=== PATIENT | female | born 1965 | race Caucasian/White ===

== ENCOUNTER 2017-02-27 20:02 | Inpatient (IN) | payer OTHER ==
[~2017-02-27] VITALS: Ht 160 cm; Wt 67.7 kg
[2017-02-27] VITALS (9 sets, daily range): BP systolic 77–113; BP diastolic 42–74; PULSE 69–94; RESP 20–23; O2SAT 98–100
[~2017-02-27 20:02] MED LIST: ALBU0.423 NEB; ALBU8.5H4 IH; ALPR0.5T PO; Albuterol-Ipratropium 3 mL Inhalation Solution NEB ONE; MethylprednisoLONE Sodium Succinate 62.5 mg/mL 2 mL Inj IVPUSH ONE; OXYC-284 PO; PRE20 PO
[2017-02-27] MEDS ORDERED: Propofol Inj 1,000,000 MCG in IV Premix 1 EACH IV SCH ×2 (20:08→21:50)
[2017-02-27] MEDS ORDERED: Ipratropium 0.02% 0.5 mg/2.5 mL Inhalation Solution NEB ONE (20:10)
[2017-02-27] MEDS ORDERED: MethylprednisoLONE Sodium Succinate 62.5 mg/mL 2 mL Inj IVPUSH ONE (20:10)
[2017-02-27] MEDS ORDERED: Albuterol 2.5 mg/3 mL Inhalation Solution NEB ONE (20:10)
--- NOTE | 2017-02-27 20:10 | ED.REPORT ---
HPI-Cardiac Arrest Date of Service Feb 27, 2017 ED Provider: Yeison Waterman MD Patient is a 46 year old female with a history of asthma (prior admission/ intubation) who presents to the ED via EMS following cardiorespiratory arrest. Per EMS the patient had shortness of breath that progressively worsened, and a reporting person witnessed the patient go into cardiorespiratory arrest. The reporting person noted no pulses and started CPR which lasted 5 minutes at 1920. Upon arrival by EMS the patient was pulseless and apneic. Pt was intubated and given epinephrine and 2 rounds of ketamine. They performed 8 more minutes of CPR with return of circulation. En route the patient was hypotensive. Nursing Notes Stated Complaint: RESPIRATORY ARREST Chief Complaint: Critical Care/Intubated Nursing Notes Reviewed: Yes ([employer] not reconciled) Allergies: Coded Allergies: erythromycin base (Verified Allergy, Unknown, 12/06/14) hydrocodone (Verified Allergy, Unknown, 12/06/14) promethazine (Verified Allergy, Unknown, 12/06/14) Uncoded Allergies: Erythromycin (Allergy, Unknown, 07/18/04) Hydrocodone (Allergy, Unknown, 07/18/04) Penicillin (Allergy, Unknown, 07/18/04) Promethazine (Allergy, Unknown, 07/18/04) Scheduled Prednisone (PredniSONE) 20 Mg Tablet 60 MG PO DAILY Scheduled PRN Albuterol (Accuneb) 1.25 Mg/3 Ml Nebu 1.25 MG NEB Q4H PRN PRN For Wheezing Albuterol HFA (Albuterol HFA) 8.5 Gm Hfa.aer.ad 1 PUFF IH Q4 PRN PRN For Wheezing Alprazolam (Xanax) 0.5 Mg Tablet 0.5 MG PO TID PRN PRN For Anxiety Oxycodone HCl/Acetaminophen 5-325 (Percocet 5-325) 1 Each Tablet 1 EACH PO Q4 PRN PRN For Pain General Time Seen by Provider: 20:02 Chief Complaint Cardiac arrest, found dwn Down Time Prior to EMS: 1 - 20 min Total Time Arrest to Arrival: 1 - 20 min Hx Obtained From: EMS Unable to Obtain Hx: Patient condition Arrived By: Ambulance Onset Occurred: Just prior to arrival Context of Onset: Asthma/COPD exacerb Symptom Duration: Since onset Recent Healthcare: No recent hospitalization, Recent doctor visit Similar Sx Previous: Yes Past Medical History Past Medical History Notes: Previous admission for status asthmaticus November 2014 - records from that admission indicates she has had a previous intubation for asthma at [facility] Past Medical History Asthma (prior admission, intubation) Anxiety hypertension The patient's significant other mentions heart disease and describes a possible cardiac stent, but then talks about what certainly sounds like an asthma exacerbation, and it reports that the patient is not on any aspirin or other standard cardiac medications Additionally the patient's significant other reports patient has suffered a previous fractured sternum from prior CPR Past Surgical History Unknown ? History of cardiac angioplasty and/or stent-deals details unclear and from unreliable source Smoking History Never Smoker Social History Drug Use: Cocaine (history of cocaine use per ED i.e. report, with report of cocaine use in November 2016) Ambulatory Status Independent Review of Systems Unable to Obtain ROS Patient condition, Intubated Physical Exam Initial Vital Signs Vital Signs (First) Date Time Temp Pulse Resp B/P Pulse Ox O2 Delivery O2 Flow Rate FiO2 02/27/17 20:08 36.9 94 23 112/67 100 Mechanical Ventilator Initial VS: Reviewed, Vital signs abnormal (cardiac arrest in field) ENT: Conjunctiva normal, No scleral icterus Skin: Warm, Dry, No cyanosis Alertness: Positive: Unresponsive Intubated post cardiac arrest Patient was given ketamine prior to arrival to the ED making the exam difficult to perform Respiratory: audible bronchospasms bilaterally. reasonable bag valve compliance and peak pressure are under 40 (current vent does not allow plateau pressures) bounding pulses everywhere Cardiovascular: Heart rate NL, Regular rhythm, Heart sounds NL, No murmurs, Peripheral circulation NL Abdomen: Soft, Non-tender Head / Eyes: Atraumatic, Normocephalic, No nystagmus Mental Status: Positive: Pharmacologically sedated, Unresponsive 4mm pupils minimally reactive Interpretation & Diagnostics Lab Results Interpretation Result Diagram: 02/27/17200902/27/172009 Test 02/27/17 20:10 02/27/17 20:27 White Blood Count 12.5th/mm3 (3.8-10.1) Red Blood Count 3.92mil/mm3 (3.90-5.20) Hemoglobin 11.1g/dL (12.0-15.6) Hematocrit 36.3% (35.0-46.0) Mean Corpuscular Volume 92.6fL (81-100) Mean Corpuscular Hemoglobin 28.3pg (27.0-35.0) Mean Corpuscular Hemoglobin Concent 30.6% (32.0-37.0) Red Cell Distribution Width 14.9% (12.3-15.4) Platelet Count 315bil/L (150-400) Neutrophils (%) (Auto) 64.1% (40-74) Lymphocytes (%) (Auto) 18.1% (14-46) Monocytes (%) (Auto) 8.2% (4-12) Eosinophils (%) (Auto) 8.0% (0-5) Basophils (%) (Auto) 0.2% (0-3) Prothrombin Time 10.8sec (8.1-12.5) Prothromb Time International Ratio 1.01ratio D-Dimer 4.29mg/L FEU (<0.50) Sodium Level 143mEq/L (134-144) Potassium Level 4.0mEq/L (3.5-5.2) Chloride Level 106mEq/L (97-108) Carbon Dioxide Level 17mmol/L (18-29) Blood Urea Nitrogen 18mg/dL (6-24) Creatinine 1.19mg/dL (0.57-1.00) Estimat Glomerular Filtration Rate 69mL/min (>59) Glucose Level 155mg/dL (60-99) Lactic Acid Level 6.2mmol/L (0.4-2.0) Calcium Level 7.9mg/dL (8.5-10.1) Phosphorus Level 9.5mg/dL (2.5-4.9) Magnesium Level 2.5mg/dL (1.6-2.6) Total Bilirubin 0.4mg/dL (0.0-1.2) Aspartate Amino Transf (AST/SGOT) 48U/L (0-50) Alanine Aminotransferase (ALT/SGPT) 41U/L (0-32) Alkaline Phosphatase 59U/L (25-150) Total Creatine Kinase 198U/L (21-215) Creatine Kinase MB 7.1ng/mL (0.0-5.3) Creatine Kinase MB % 3.6% (0.0-5.0) Troponin T < 0.010ug/L (0.0-0.011) Pro-B-Type Natriuretic Peptide 214.7pg/mL (0-249) Total Protein 5.6g/dL (6.4-8.4) Albumin 3.2g/dL (3.4-5.0) Triglycerides Level 46mg/dL (0-149) HCG Beta Subunit 0.784mIU/mL Urine Color Yellow (YELLOW) Urine Appearance Hazy (CLEAR,HAZY) Urine pH 6.0 (5.0-8.0) Urine Specific [place] >1.030 (1.003-1.035) Urine Protein >300mg/dL (NEG,TRACE) Urine Glucose (UA) Negativemg/dL (NEGATIVE) Urine Ketones Negativemg/dL (NEGATIVE) Urine Occult Blood Large (NEGATIVE) Urine Nitrite Negative (NEGATIVE) Urine Bilirubin Negative (NEGATIVE) Urine Urobilinogen Normalmg/dL (NORMAL) Urine Leukocyte Esterase Negative (NEGATIVE) Urine RBC >50/hpf (0-2) Urine WBC 0-5/hpf (0-5) Urine Epithelial Cells Moderate/hpf (NONE-MOD) Urine Crystals None seen (NONE SEEN) Urine Bacteria Few/hpf (NONE-FEW) Urine Hyaline Casts None/lpf (NONE) Urine Granular Casts None seen (NONE SEEN) Urine Waxy Casts None seen (NONE SEEN) Urine Red Blood Cell Casts None seen (NONE SEEN) Urine White Blood Cell Casts None seen (NONE SEEN) Urine Mucus None seen (None Seen) Urine Trichomonas None seen (NONE SEEN) Urine Yeast None (NONE SEEN) Urinalysis Comment Amorphous sediment Urine Culture Reflexed Not indicated Lab Results Interpretation: pH 7.046/ pCO2 72/ pO2 308.0/ cHCO3- (P) 18.9 CBC moderate leukocytosis CMP severe metabolic acidosis, mild renal insufficiency negative D-dimer elevated UA concentrated, positive blood Tox screen Initial troponin negative ECG Interpretation ECG Interpretation: no ischemia no dysrhythmia Time: 20:19 Interpreted by: ED physician Normal ECG Interpretation: Normal rate (93), Normal sinus rhythm X-Ray Chest Interpretation Chest Xray Interpretation: IMPRESSION: Acute disease is not seen in any portable chest. Tubes as noted. Dictated by: Dany Nunez M.D. on 02/27/2017 at 20:24 Approved by: Dany Nunez M.D. on 02/27/2017 at 20:26 View: Portable, 1 view Interpretation / Wet Read by: Interpret - Radiologist CT Head Interpretation Findings: No hemorrhage, abnormal extra-axial fluid collections, midline shift or mass effect present. The sella and supra-sellar areas are normal. The brainstem and cerebellum are normal. No CT evidence of acute infarct. No fractures. Paranasal sinuses are normal. The orbits are normal. at 2225. Study: Head CT no contrast Interpretation / Wet Read by: Interpret - Radiologist Procedures Central Line Placement Central Line Placement Note: Single needlestick pass success. Placement of triple lumen right subclavian Time: 20:41 Procedure Performed by: ED physician Consent / Setup / Site Prep: No consent - emergent, Time-out performed, Oxygen administered, Pulse oximeter applied, groundwater monitoring technician applied, Hand hygiene observed, Standard surgical scrub, Max barrier precaution, Sterile drapes applied, Head of bed at 30-60 deg (at 30) Skin Preparation Agent: Hibiclens - Chlorhexidine Local Anesthesia: Lidocaine 1% Procedural Sedation/Analgesia: Sedation: Ketamine Side / Location / Ultrasound: Subclavian right Catheter / Lumen / Technique: Triple lumen, Good blood return, Secured w catheter device Central Line Tip Location: Cath tip good position in the SVC Post-Procedure / Complications: Dressing placed, CXR neg for pneumothorax, Condition improved, Tolerated procedure well Re-Eval/Medical Decision Med Decision/Clinical Course This is a 46-year-old female brought to the emergency department following a cardiac arrest thought to be secondary to a primary respiratory arrest. The patient is a history of severe asthma, has been hospitalized and even intubated in the past, apparently was having worsening shortness of breath, then significant other called 911, and the patient requested just as EMS was arriving. The bystander performed a few minutes of CPR, and it took another approximately 8 minutes of CPR and resuscitative efforts for before return of spontaneous circulation occurred. Initial end-tidal CO2 was greater than 120, patient's clinically bronchospastic throughout, but had return of blood pressure and oxygenation on arrival. She had no clear definitive neurologic function, but given her severe bronchospasm and would seem be some reaction to the endotracheal tube, the patient received ketamine by EMS prior to arrival. On arrival patient's intubated, so bronchospastic. Peak pressures are only 30, she does have air movement bilaterally. No pneumothorax or pneumonia is evident on chest x-ray. An NG tube was placed. The patient was placed on low volume vent settings given his concern for the possibility of air trapping. She was monitored but had no clear return of neurologic function, so the decision was made to proceed with sedation and hypothermia protocol. Probable false initially planned, but just as this happened, the patient did become hypotensive; probable fall was never administered. At this point ketamine was given for re-sedation. I placed a right subclavian central line without difficulty, follow-up chest x- ray demonstrating outlining good position with no complication. Anesthesia place arterial line. She received multiple liters of saline, but still remained hypotensive and was started nor epi drip. The patient improved. There is concern for possibly some mucous plug events, patient twice had 2 major desaturations-the patient was disconnected from the vent, bag valve ventilated-there are breath sounds bilaterally, with good compliance without evidence of air trapping or pneumothorax. The patient was suctioned a large amount of material removed, the patient oxygenated again. The patient is reattached to the ventilator, and post the suctioning, the pressures went down from what it been a peak of 30, down to 10-20 or markedly improved. There was no significant bronchospasm. The patient had several radiographs try to make sure that the tube placement had not changed significantly, and no pneumothorax or barotrauma had occurred- no point was the tube identified in the right mainstem, but nurses report that the initial hypoxic desaturation event occurred as a moving around, so I pulled back the ET tube slightly in re-shocked it still in excellent position to help make sure that the movement had not led to a transient right mainstem obstruction. She received albuterol, Atrovent, steroids, IV fluids-and 1. even 0.5 mg of intramuscular epinephrine. She remains broncho-Spastic, but is improving. Blood pressure is normalizing. EKG reveals no ischemia. Troponin is negative. There is this difficult to interpret history of possible heart disease related by by the significant other , but his description is a bit unusual or true coronary artery disease, the patient is adamant is not on aspirin or any cardiac meds. Any events that he describes sound like he occurred following up another respiratory arrest, but he does describe and mentions "Staff Home Therapy Rn" and "stent". Apparently she was she was just hospitalized recently at [facility] and were attempting to obtain records. The [facility] records indicate she was cocaine positive in December at [facility], so U tox was obtained and is cocaine positive today. A CT of the brain was obtained and was negative. CT angios the chest also obtained. Patient is being admitted in critical condition. She was responded to therapy with fluids and pressors, so we are proceeding with the hypothermia protocol. Interestingly her temp was low and near the target range for hyperthermia even prior to initiation of any cooling. Note-after prolonged period referred back from [facility] that they have not been able to identify records for this patient. Source of Hx: Old records, EMS Re-Evaluation/Progress #1: Time of Eval: 20:35 Re-Evaluation/Progress Note: Rechecked patient. She still has no leg movement. Re-Evaluation/Progress #2: Time of Eval: 20:39 Re-Evaluation/Progress Note: Still has bronchospasms. Symmetric breath sounds bilaterally Re-Evaluation/Progress #3: Time of Eval: 21:32 Re-Evaluation/Progress Note: Desatted, switched to bag valve ventilation. Audible bronchospasms, bilateral breath sounds no overt evidence of pneumothorax. after bag valve ventilation, O2 levels went up 100% Re-Evaluation/Progress #4: Time of Eval: 21:40 Re-Evaluation/Progress Note: Patient Desatted again. Updated significant other of condition. Consultation #1: Referral / Consult Name: Risa Culver DO Consulted With: Hospitalist Call Returned at: 21:06 Vice President Of Marketing: Agrees with eval, Agrees with plan, Accepts admit Consultation #2: Referral / Consult Name: Risa Culver DO Consulted With: Hospitalist Call Returned at: 23:21 Note: Discussed patient's case with Dr. Culver and further past medical history and tox results of the patient. Differential Diagnosis: Positive: Cardiopulmonary arrest, Respiratory arrest, Respiratory failure, Negative: Abdominal aortic aneurysm, Allergic reaction, Anaphylaxis, Cardiac tamponade, Dysrhythmia, Electrolyte disorder, Hypoglycemia, Intracranial hemorrhage, Overdose, Pneumothorax Counseled Regarding: Diagnosis, Lab results, Need for admission Discharge & Departure Impression: Primary Impression: Respiratory arrest Additional Impressions: Status asthmaticus Asthma severity: unspecified severity Qualified Code: J45.902 - Unspecified asthma with status asthmaticus Cocaine abuse Disposition: ADMITTED TO HOSPITAL All VS Reviewed: Yes Condition: Critical Referrals: [facility] Crit Care Except Billable Proc Time Spent: 30-74 minutes Services Performed: Patient management by me, Time spent at bedside, Reviewing test results, Reviewing imaging, Discussing patient care, Documentation in record, Time with fam/surrogate Scribe Attestation Portions of this note were transcribed by Janie Lin and Silvia Henderson. I, Dr. Trujillo personally performed the history, physical exam and medical decision- making; I reviewed and confirmed the accuracy of the information in the transcribed note. Signed by: Janie Lin and Lorne Ibarra, 02/27/17 and 2120 copies to: [facility] Yeison Waterman MD Feb 27, 2017 20:10 Marsha Lin Feb 27, 2017 20:17 Silvia Henderson Feb 27, 2017 21:07
--- NOTE | 2017-02-27 20:15 | ABG ---
DateTimeAnalyzed 20:11:00 -_ pH ____7.046 - 7.350 7.450 pCO2 ___72.2__ -mmHg 35.0 45.0 pO2 308 -mmHg 69.0 116 HCO3- ___18.9__ -mmol/L 22.0 26.0 ABE __-12.2__ -mmol/L -2.0 2.0 tHb ___10.9__ -g/dL O2Hb ___96.7__ -% COHb ____1.0__ -% MetHb ____1.1__ -% sO2 ___98.8__ -% FIO2 __100.0__ -% Drawn By LT - Date/Time Notified____ 20:14:00 -_ Notified By LT - Notified Whom DR MARCO - B 765 -mmHg tO2 ___15.5__ -Vol% [place] test _Positive -
[2017-02-27 20:19] LABS: BASOPHILS % (AUTO) 0.2 % (0-3); MONOCYTES % (AUTO) 8.2 % (4-12); Mean Corpuscular Hemoglobin 28.3 pg (27.0-35.0); Mean Corpuscular Volume 92.6 fL (81-100); NEUTROPHILS % (AUTO) 64.1 % (40-74); Platelet Count 315 bil/L (150-400)
[2017-02-27] MEDS ORDERED: 0.9% Sodium Chloride 1,000 ML IV ONE ×3 (20:20→21:15)
[2017-02-27] MEDS ORDERED: Magnesium Sulf 2 Gm/50mL Water 2 GM in IV Premix 1 EACH IV ONE (20:20)
[2017-02-27] MEDS ORDERED: Propofol 10,000 mCg/mL 100 mL Inj ONE (20:23)
--- NOTE | 2017-02-27 20:27 | DRSVH ---
PROCEDURE: X-RAY CHEST ONE VIEW, PORTABLE ([id number]) INDICATIONS: respiratory arrest TECHNIQUE: One view of the chest was acquired. COMPARISON: None. FINDINGS: Surgical changes and devices: NG tube shows a sidehole in the distal esophagus and needs to be advanc ed [address] Schofield is aware of this. Endotracheal tube is 4.5 cm above the karina. Lungs and pleura: No pleural effusions or pneumothorax. Lungs are clear. Mediastinum: Mediastinal contours appear normal. Heart size is normal. Bones and chest wall: No suspicious bony lesions. Overlying soft tissues appear unremarkable. IMPRESSION: Acute disease is not seen in any portable chest. Tubes as noted. Dictated by: Dany Nunez M.D. on 02/27/2017 at 20:24 Approved by: Dany Nunez M.D. on 02/27/2017 at 20:26
[2017-02-27] MEDS ORDERED: Ketamine 100 mg/mL 5 mL Inj ONE (20:35)
[2017-02-27] MEDS ORDERED: Norepineph 8,000 mCg/250 mL NS 8,000 MCG in IV Premix 1 EACH IV SCH ×2 (20:36→21:11)
[2017-02-27] MEDS ORDERED: Ketamine 100 mg/mL 5 mL Inj IV ONE (20:40)
[2017-02-27 20:50] LABS: TROPONIN T < 0.010 ug/L (0.0-0.011)
[2017-02-27 20:59] LABS: Magnesium 2.5 mg/dL (1.6-2.6)
[2017-02-27 21:01] LABS: APPEARANCE,URINE HAZY (CLEAR,HAZY); COLOR,URINE YELLOW (YELLOW); OCCULT BLOOD,URINE LARGE (NEGATIVE); UROBILINOGEN,URINE NORMAL (NORMAL)
[2017-02-27] MEDS ORDERED: Norepinephrine 8,000 mCg/250 mL NS Premix IV ONE (21:01)
--- NOTE | 2017-02-27 21:27 | DRSVH ---
PROCEDURE: X-RAY CHEST ONE VIEW, PORTABLE ([id number]) INDICATIONS: check central line placement TECHNIQUE: One view of the chest was acquired. COMPARISON: None. FINDINGS: Surgical changes and devices: Central line from the right subclavian approach has been placed. It is considered in good position radiographically allowing for rotation of the chest. It is in the superio r vena cava above the right atrium. NG tube shows a side hole at the GE junction. awake overnight monitor gadiel ds are seen over the chest. The endotracheal tube ends 5 cm above the karina. Lungs and pleura: No pleural effusions or pneumothorax. Lungs are clear. Mediastinum: Mediastinal contours appear normal. Heart size is normal. Bones and chest wall: No suspicious bony lesions. Overlying soft tissues appear unremarkable. IMPRESSION: Right subclavian central line is considered to be in good position allowing for rotation of the chest. No pneumothorax is seen. Dictated by: Dany Nnuez M.D. on 02/27/2017 at 21:25 Approved by: Dany Nunez M.D. on 02/27/2017 at 21:26
--- NOTE | 2017-02-27 21:43 | ABG ---
DateTimeAnalyzed 21:38:00 -_ pH ____7.089 - 7.350 7.450 pCO2 ___64.0__ -mmHg 35.0 45.0 pO2 290 -mmHg 69.0 116 HCO3- ___18.5__ -mmol/L 22.0 26.0 ABE __-11.6__ -mmol/L -2.0 2.0 tHb ___11.2__ -g/dL O2Hb ___97.2__ -% COHb ____0.8__ -% MetHb ____1.2__ -% sO2 ___99.2__ -% FIO2 __100.0__ -% Drawn By LT - Date/Time Notified____ 21:42:00 -_ Notified By LT - Notified Whom DR MARCO - B 766 -mmHg tO2 ___15.9__ -Vol% [place] test N/A -
[2017-02-27] MEDS ORDERED: Cisatracurium 2,000 mCg/mL 10 mL Inj IV ONE ×2 (21:50→21:52)
[2017-02-27] MEDS: Cisatracurium 200,000 mCg/100 mL NS IV SCH ×2 (21:50)
--- NOTE | 2017-02-27 22:00 | DRSVH ---
PROCEDURE: X-RAY CHEST ONE VIEW, PORTABLE ([id number]) INDICATIONS: Desaturation Event TECHNIQUE: One view of the chest was acquired. COMPARISON: None. FINDINGS: Surgical changes and devices: NG tube is positioned with the side hole at the GE junction. Endotrache al tube has moved more distally and is now positioned approximately 2-1/2 cm above the karina. A righ t subclavian central line is appropriate in position. Lungs and pleura: No pleural effusions or pneumothorax. Lungs are clear. Mediastinum: Mediastinal contours appear normal. Heart size is normal. Bones and chest wall: No suspicious bony lesions. Overlying soft tissues appear unremarkable. IMPRESSION: Changed position of endotracheal tube now 2 and half centimeters above the karina. The NG tube could be advanced 10 cm so that the side hole is well within the stomach rather than at the G E junction. Right subclavian central line with the tip at the junction of superior vena cava and right atrium. Dictated by: Dany Nunez M.D. on 02/27/2017 at 21:57 Approved by: Dany Nunez M.D. on 02/27/2017 at 21:59
[2017-02-27] MEDS ORDERED: Senna-Docusate 8.6-50 mg Tablet PO PRN (22:10)
[2017-02-27] MEDS ORDERED: Ondansetron 2 mg/mL 2 mL Inj IVPUSH PRN (22:10)
[2017-02-27] MEDS ORDERED: Polyethylene Glycol (PEG) 17 Gm Powder PO PRN (22:10)
[2017-02-27] MEDS ORDERED: Alum-Mag Hydrox-Simeth 30 mL Suspension PO PRN (22:10)
--- NOTE | 2017-02-27 22:29 | PCM.HPMED ---
Subjective Date of Service Feb 27, 2017 Primary Provider: Admitting Physician: Risa Culver DO Primary Care Physician: Justus Attending Physician: Risa Culver DO Admit Status: From the Emergency Department Chief Complaint: cardiac arrest History of Present Illness: 46yoF with past medical history of anxiety, asthma wit past intubations 2/2 asthma at [facility] as per EMR admitted following a cardiorespiratory arrest in the field. Per ED documentation: "Per EMS the patient had shortness of breath that progressively worsened, and a reporting person witnessed the patient go into cardiorespiratory arrest. The reporting person noted no pulses and started CPR which lasted 5 minutes at 1920. Upon arrival by EMS the patient was pulseless and apneic. Pt was intubated and given epinephrine and 2 rounds of ketamine. They performed 8 more minutes of CPR with return of circulation. En route the patient was hypotensive." Recent admission at [facility] and [facility]. Possible seizure activity following presentation. Utox in ED positive for cocaine. Initial vitals upon arrival T 36.9, 94, 23, 112/67 with BP decreasing 30 minutes following arrival (77/42). ABG following arrival pH 7.046/ pCO2 72/ pO2 308.0/ cHCO3- (P) 18.9 Patient was started on cooling protocol. Review of Systems: Unable to obtain. Patient is intubated and sedated. Allergies Coded Allergies: erythromycin base (Verified Allergy, Unknown, 12/06/14) hydrocodone (Verified Allergy, Unknown, 12/06/14) promethazine (Verified Allergy, Unknown, 12/06/14) Uncoded Allergies: Erythromycin (Allergy, Unknown, 07/18/04) Hydrocodone (Allergy, Unknown, 07/18/04) Penicillin (Allergy, Unknown, 07/18/04) Promethazine (Allergy, Unknown, 07/18/04) Home Medications Unable to obtain from patient. As per last admission 2014 only medications were albuterol and alprazolam PMH Asthma (prior admission, intubation) Anxiety hypertension possible cardiac history - not taking any cardiac medications, SO states patient has had cath and has stents in past? Surgical History Unknown surgical history Family History Unable to obtain family history as patient is intubated and sedated Social History Hx Alcohol Use: No Hx Substance Use: Yes (past history of cocaine use) Smoking Status: Never Smoker Exam Vital Signs Vital Sign - Last Date Time Temp Pulse Resp B/P Pulse Ox O2 Delivery O2 Flow Rate FiO2 02/27/17 21:55 74 23 113/74 98 Mechanical Ventilator 02/27/17 21:16 33.5 Exam General: sedated and intubated Eyes: PERRL, Scleral Anicteric Mouth: Mouth Normal, Mucous Membranes dry/[place] Neck: Supple, no Thyromegaly, trachea central. Chest & Lungs: CTA bilat, no rhonchi wheeze or rales Cardiovascular: Normal S1, Normal S2, 2/6 systolic Murmurs/Rubs/Gallops, reg rate/ reg rhythm, (unable to assess JVD, no peripheral edema), right ij in place Pulses: Radial (present and equal), Dorsalis Pedi (present and equal) Abdomen: Soft, non-tender, no rebound tenderness, Non-distended, Normoactive bowel tones. : villegas in place Musculoskeletal: Unremarkable. Normal range of motion, no swollen or erythematous joints Extremities: No edema, no cyanosis, no clubbing. Skin: No rashes. cooling and dry, no erythematous areas Neurological: unable to assess Lymphatic: Lymph nodes Cervical and Axillary not palpable. Lab and Diagnostics Result Diagram: 02/27/17200902/27/172009 X-Rays, CTs and MRIs CT Head Interpretation Findings: No hemorrhage, abnormal extra-axial fluid collections, midline shift or mass effect present. The sella and supra-sellar areas are normal. The brainstem and cerebellum are normal. No CT evidence of acute infarct. No fractures. Paranasal sinuses are normal. The orbits are normal. at 1342. Study: Head CT no contrast Interpretation / Wet Read by: Interpret - Radiologist X-Ray Chest Interpretation Chest Xray Interpretation: IMPRESSION: Acute disease is not seen in any portable chest. Tubes as noted. Dictated by: Dany Nuenz M.D. on 02/27/2017 at 20:24 Approved by: Dany Nunez M.D. on 02/27/2017 at 20:26 View: Portable, 1 view Interpretation / Wet Read by: Interpret - Radiologist 12-lead ECG ECG Interpretation: no ischemia no dysrhythmia Time: 20:19 Interpreted by: ED physician Normal ECG Interpretation: Normal rate (93), Normal sinus rhythm Assessment & Plan 46yoF with past medical history of anxiety, asthma wit past intubations 2/2 asthma at [facility] as per EMR admitted following a cardiorespiratory arrest in the field. Cardiopulmonary arrest, acute, prior to arrival -approx 5 minutes of CPR with ROSC -cooling protocol started prior to admission -unclear events leading up to arrest but likely associated with asthma -possible recent URI symptoms with recent admissions at [place] and [facility], request records -CTA pending -Utox +cocaine -initial troponin neg, no ischemic change on EKG -continue cooling protocol -repeat troponin -resp viral panel, MRSA screen, sputum cx, cefepime emprically Respiratory failure with hypoxia, acute -vent dependent -pulmonology consult vent management -vent bundle ordered -sedation with propofol / fentanyl Asthma exacerbation, acute -methylpred [id number] -albuterol q4hr Possible seizure activity, acute, POA -no known past seizure history -keppra 2000mg x1 Pain Evaluation: Adequate Pain Control GI Prophylaxis: H2 julia VTE Prophylaxis: Sub-Q Heparin (Unfractionated) VTE Mechanical Devices: Intermittant Pneumatic CD Resuscitation Status: CPR: Attempt Resuscitation Risa Culver DO Feb 27, 2017 22:29
[2017-02-27 23:02] LABS: INR 1.01 ratio
[2017-02-27] MEDS ORDERED: Cefepime Inj 2 GM in IV Premix 1 EACH IV SCH (23:02)
[2017-02-27 23:30] LABS: Phosphorus 9.5 mg/dL (2.5-4.9)
[2017-02-27] MEDS: Propofol Inj 1,000,000 MCG in IV Premix 1 EACH IV SCH (23:51)
[2017-02-27] MEDS: Cefepime Inj 2,000 MG in Dextrose 5% Minibag Plus 50 ML IV SCH (23:52)
[2017-02-28] VITALS (11 sets, daily range): BP systolic 106–152; BP diastolic 61–88; PULSE 48–65; RESP 22–24; O2SAT 92–100
[2017-02-28] MEDS: levETIRAcetam Inj 1,000 MG in IV Premix 1 EACH IV SCH ×2 (00:03→00:18)
[2017-02-28] MEDS: Chlorhexidine 0.12% 15 mL Oral Solution MT SCH ×5 (00:10→16:23)
[2017-02-28] MEDS ORDERED: NITROGLYCERIN 50 MG/250 ML IV PRN (00:10)
[2017-02-28] MEDS ORDERED: fentaNYL-PF 50 mCg/mL 2 mL Inj IV PRN (00:10)
[2017-02-28] MEDS ORDERED: D5W IV PRN (00:10)
[2017-02-28] MEDS ORDERED: Norepinephrine 8,000 mCg/250 mL NS Premix IV PRN (00:10)
[2017-02-28] MEDS ORDERED: Cisatracurium 2,000 mCg/mL 10 mL Inj IV PRN (00:15)
[2017-02-28] MEDS ORDERED: Magnesium Sulf 2 Gm/50mL Water 2 GM in IV Premix 1 EACH IV PRN (00:15)
[2017-02-28] MEDS ORDERED: Calcium GLUCO 10% (Gm) Inj 2 GM in 0.9% Sodium Chloride 100 ML IV PRN (00:20)
[2017-02-28] MEDS: fentaNYL 2,500 mCg/250 mL 2,500 MCG in IV Premix 1 EACH IV PRN (01:10)
[2017-02-28] MEDS: Cisatracurium 200,000 mCg/100 mL NS IV SCH ×4 (02:02→21:29)
--- NOTE | 2017-02-28 02:49 | NUR ---
Admit note. Admitted to CCU 2017 from ER at 2225. Assisted with setup and start of targeted temperature management at 2120. Continues ventilated with sats high 90s on 60% fio2. Levophed gtt 0.3mcg. Propofol 20mcg. 2200: Blood pressure abruptly increased as high as 190s/100s. Levophed gtt turned off, Propofol titrated up to 50mcg and eventually Nitroglycerin gtt started for MAP >100 per protocol. See CCU flowsheet. 0200: Started increasing peak pressures on ventilator with prolonged forceful expiration. Fentanyl gtt started without improvement. Respirations started significantly asyncronous with decrease in sats from 100% to 89-93%. Nimbex gtt started improved ventilations. BIS monitoring started with initially poor signal related to elevated EMG settling to a BIS of 5-10 after Nimbex. Propofol weaned. Chadwick cath in place with pale uop. OGT to LIS and minimal output. SCDs in place. Right radial arterial line in place. Right subclavian CVL in place and infusing well. Tele sinus rhythm. Significant other briefly to bedside and updated.
--- NOTE | 2017-02-28 02:58 | PROCED ---
[address] [address] PROCEDURE NOTE PATIENT: DL TOBIN : 09/08/1970 MR#: [id number] ADMIT: 02/27/2017 JOB ID: [id number] DATE OF SERVICE: POSTOPERATIVE DIAGNOSIS(ES): PREOPERATIVE DIAGNOSIS(ES): SURGEON: ANESTHESIA EPIDURAL PROCEDURE NOTE: I was called by the emergency department for an emergency arterial line placement secondary to the need to begin the hypothermic protocol for a cardiac arrest and the need for vasopressors. No consent was obtained as there was no family present and this was an emergency situation. A time-out was completed, verifying the correct patient, procedure, site, positioning, and the ultrasound was available. Rancho's test was performed on bilateral wrists to ensure adequate perfusion. Initially, the patient's left wrist was prepped and draped in the sterile fashion, but after several attempts I was not able to obtain arterial line placement. The patient's right wrist was prepped and draped in a sterile fashion. ChloraPrep was used on the skin. Sterile gloves, hat and gown were worn at all times. An 18-gauge Arrow arterial line was introduced into the right radial artery under ultrasound guidance. The catheter was threaded over the guidewire and the needle was removed with appropriate pulsatile blood return. The catheter was then secured in place with Tegaderm sterile dressing. Perfusion to the extremity distal to the point of catheter insertion was checked and found to be adequate. Appropriate pulsatile blood flow was present. Estimated blood loss 3 mL. No apparent anesthesia complications. [facility]OSPITALAlexys
--- NOTE | 2017-02-28 03:05 | NUR ---
Emergency room nursing lab result positive for Cocaine.
[2017-02-28 03:35] LABS: Mean Corpuscular Hemoglobin 28.9 pg (27.0-35.0); Mean Corpuscular Volume 91.2 fL (81-100)
[2017-02-28] MEDS: Propofol Inj 1,000,000 MCG in IV Premix 1 EACH IV SCH ×3 (03:37→22:25)
[2017-02-28 03:53] LABS: INR 0.98 ratio
--- NOTE | 2017-02-28 03:53 | ABG ---
DateTimeAnalyzed 03:49:00 -_ pH ____7.271 - 7.350 7.450 pCO2 ___43.9__ -mmHg 35.0 45.0 pO2 154 -mmHg 69.0 116 HCO3- ___19.5__ -mmol/L 22.0 26.0 ABE ___-6.6__ -mmol/L -2.0 2.0 tHb ___12.1__ -g/dL O2Hb ___97.4__ -% COHb ____0.7__ -% MetHb ____0.9__ -% sO2 ___99.0__ -% FIO2 ___45.0__ -% PEEP ____5.0__ -cmH2O Set_RR ___22.0__ -b/min Vt __380.0__ -L Drawn By MK - Date/Time Notified____ 03:52:00 -_ Spontaneous_RR ___22.0__ -b/min Oxygen Device 1 VENTILATOR - Notified By MK - B 767 -mmHg tO2 ___16.8__ -Vol% Rancho test N/A -
[2017-02-28 04:24] LABS: Magnesium 2.4 mg/dL (1.6-2.6)
[2017-02-28 04:25] LABS: TROPONIN T 0.01 ug/L (0.0-0.011)
[2017-02-28] MEDS ORDERED: KCl 40 mEq/100 mL Premix (K 3 - 3.7 & Creat < 2) IV ONE ×2 (05:10→16:30)
[2017-02-28] MEDS: MethylprednisoLONE Sodium Succinate 62.5 mg/mL 2 mL Inj IVPUSH SCH ×2 (08:12→14:25)
[2017-02-28 08:13] LABS: Phosphorus 3.3 mg/dL (2.5-4.9)
[2017-02-28] MEDS: Cefepime Inj 2,000 MG in Dextrose 5% Minibag Plus 50 ML IV SCH (08:13)
[2017-02-28] MEDS ORDERED: Albuterol HFA 200 Puff Inhaler (Vent Pts Only) INHALATION SCH (08:30)
--- NOTE | 2017-02-28 08:43 | DRSVH ---
PROCEDURE: CT BRAIN WITHOUT CONTRAST ([id number]) INDICATIONS: cardiac arrest TECHNIQUE: Noncontrast 4.5 mm thick angled axial sections acquired from the foramen magnum to the vertex, with c oronal reformats. COMPARISON: None. FINDINGS: Image quality: Excellent. CSF spaces: Basal cisterns are patent. No extra-axial fluid collections. Ventricles are normal in size and shape. Brain: No midline shift. No intracranial masses or hemorrhage. Miranda-white matter interface is norm al. Skull and face: Calvarium and visualized facial bones are intact, without suspicious lesions. Sinuses: Visualized sinuses and mastoids are clear. IMPRESSION: No acute intracranial abnormalities. No significant discrepancy with the dag coater radiology preliminary report. Dictated by: Devin Gan M.D. on 02/28/2017 at 8:39 Approved by: Devin Gan M.D. on 02/28/2017 at 8:41
--- NOTE | 2017-02-28 08:53 | DRSVH ---
PROCEDURE: CT ANGIO CHEST PULMONARY EMBOLISM ([id number]) INDICATIONS: Resp Arrest, Dimer 4.9 TECHNIQUE: After the administration of intravenous contrast, 2 mm thick sections acquired from the pulmonary api davie to the posterior costophrenic angles. 3-dimensional maximum intensity projection (MIP) coronal a nd sagittal reformats were then acquired through the thorax. For radiation dose reduction, the follo wing was used: automated exposure control, adjustment of mA and/or kV according to patient size. COMPARISON: [facility], CR, XR CHEST 1VW (PORTABLE), 02/27/2017, 21:27. [facility], CR, CHEST 2VW, 12/05/2014, 8:35. FINDINGS: Image quality: Excellent. Pulmonary arteries: Pulmonary arteries are normal in size, and demonstrate no intraluminal filling d efects to suggest central pulmonary embolism. Lungs and pleura: The basilar subpleural dependent atelectasis. The there is a 8 mm groundglass nodu le in the right infrahilar region within the lower lobe (series 5 image 36). A 3 mm nodule is present in the left upper lobe (series 5 image 22), and a 2 mm nodule in the lateral aspect of lingula (seri es 5 image 32). No pleural effusions or pneumothorax. Central and peripheral airways are patent. Mediastinum: Heart size is normal, without pericardial effusion. No mediastinal or hilar adenopathy . Thoracic aorta is normal in caliber and enhancement. Esophagus is normal in caliber, without hiat al hernia. Note is made of endotracheal tube and nasogastric tube. Bones and chest wall: No suspicious bony lesions. Ribs and thoracic spine appear intact throughout. Thyroid gland is normal. No axillary or supraclavicular adenopathy. Abdomen: Visualized upper abdominal solid organs appear normal in the early arterial phase of enhanc ement. IMPRESSION: 1. No evidence for central pulmonary embolism. 2. There are several lung nodules bilaterally. Recommend CT followup. Please see recommendation. Fleischner Society criteria for SOLID lung nodule followup. Nodule size (mm)Low-risk patientHigh-risk [id number] follow-up neededFollow-up at 12 mo; if no laws e, no further follow-up>5-1Ylvflp-tk CT at 12 mo; if no change, no further follow-up needed.Initial f ollow-up CT at 6-12 mo, then 18-24 mo if no change. >6-8Initial follow-up CT at 6-12 mo, then 18-24 mo if no change. Initial follow-up CT at 3-6 mo, then 9-12 mo and 24 mo if no change. >8Follow-up CT at 3, 9, 24 mo. Or PET and/or biopsy.Same as for low-risk pts. Fleischner Society criteria for SUB-SOLID lung nodule followup. Solitary pure ground-glass nodules5 mm or lessNo followup needed. >5 mm3 mo follow-up CT to confirm persistence. Then annual CT for 3 years. Part-solid nodules3 mo follow-up CT to confirm persistence . If persistent with solid component <5 mm, annual CT for at least 3 years. If solid component is 5 mm or more, biopsy or surgical resection. Consider PET-CT for lesions > 10 mm. Multiple sub-solid nodulesPure ground glass nodules [address] at 2 and 4 years. Pure ground glass nodules >5 mm without dominant lesion. [address] to confirm persistence, then annual followup CT for at least 3 years. Dominant nodule(s) with part-solid or solid component. [address] to confirm persistence. If persistent, consider biopsy or surgical resection, omero if lesions have >5 m m solid component. Dictated by: Devin Gan M.D. on 02/28/2017 at 8:41 Approved by: Devin Gan M.D. on 02/28/2017 at 8:51
--- NOTE | 2017-02-28 09:42 | NUR ---
NUTRITION ASSESSMENT: ASSESS:46 YO female admitted to CCU following respiratory arrest with intubation in the field. Hypothermia protocol currently in effect. Rewarming to begin this evening. Tox screen positive for cocaine. Patient with cardiogenic shock that includes shock liver. Keppra was ordered related to possible seizure activity, discontinued this morning. PMHx:Anxiety, asthma with multiple intubations, HTN. DIET:NPO. LABS: Reviewed. K+ 3.2, CO2 17, Glu 214, Lactic Acid 2.6, Ca 6.9, Phos 9.5, AST 71, ALT 53, TCK 879, PAB 19. MEDICATIONS: Reviewed. Solu-medrol, nimbex, fentanyl. Propofol rate currently 8 ml/hr, providing 211 lipid kcal. NUTRITION FOCUSED PHYSICAL ASSESSMENT: GI symptoms / stool: No stool reported.Pradeep: 9. Skin Integrity: Wound consult ordered related to Pradeep 9; evaluation pending. ANTHROPOMETRICS: Current Wt: 53.5 kgBMI: 20.0 kg/m2. IBW: 52.3 kg (102.3% IBW) ESTIMATED NEEDS (VENT, ASTHMA): Calories: 1605 - 1873 kcal (30 - 35 kcal / kg BW) Protein: 64 - 80 g protein (1.2 - 1.5 g / kg BW) Fluid: Approx. 1605 - 1873 mL (30 - 35 mL / kg BW) NUTRITION DIAGNOSIS: 1) Inadequate oral intake related to inability to consume sufficient energy, as evidenced by NPO / vent status. 2) Increased nutrient needs related to asthma with hx multiple intubations, as evidenced by current NPO / vent status. INTERVENTION: 1) Once rewarming completed, recommend initiate enteral feeding. Recommend initiate Pulmocare at 10 ml/hr x 12 hr. Once tolerance established, recommend advance 5 ml every 4 hr. to goal rate 50 mL/hr. Flush dose 40 mL H2O every 4 hr. Enteral feeding at goal would provide 1650 kcal (1861 kcal with propofol), 68 g protein, sufficient to meet 100% nutrient needs. MONITOR/EVALUATE: NPO / vent status, orders for nutrition support, labs, GI/nutrition status. Follow up per high nutrition risk guidelines.
[2017-02-28 09:43] LABS: Mean Corpuscular Hemoglobin 28.3 pg (27.0-35.0); Mean Corpuscular Volume 89.8 fL (81-100)
[2017-02-28 09:53] LABS: INR 0.95 ratio
[2017-02-28] MEDS: Heparin 5,000 Unit/mL Inj SUBQ SCH ×2 (10:09→16:23)
--- NOTE | 2017-02-28 10:11 | PCM.PNMED ---
Subjective Date of Service Feb 28, 2017 Subjective Overnight: Pt remained intubated and sedated throughout the night on cooling protocol. Today: Remained Intubated and Sedated Exam Vital Signs Vital Sign - Last Date Time Temp Pulse Resp B/P Pulse Ox O2 Delivery O2 Flow Rate FiO2 02/28/17 09:00 53 117/84 100 35 02/28/17 07:29 Ventilator 02/28/17 07:29 33.0 24 Intake and Output 02/27/17 02/27/17 02/28/17 Cumulative From/Thru 15:00 23:00 07:00 02/27/17 20:08 - 02/28/17 05:53 Intake Total 5500 ml 1822 ml 7322 ml Output Total 50 ml 2000 ml 2050 ml Balance 5450 ml -178 ml 5272 ml Intake IV Total 5500 ml 1822 ml 7322 ml Output Urine Total 50 ml 2000 ml 2050 ml Exam General: Intubated and sedated HEENT: Normocephalic, atraumatic. External ears without defect. ET tube in place Cardiovascular: Regular rate and rhythm with no murmurs appreciated Pulmonary: Upper anterior lobes showed expiratory wheezes. Abdomen: Bowel tones present. Soft, nontender, nondistended. Cooling pads in place Extremities: No clubbing, cyanosis or edema appreciated Skin: Cool to palpation Neurological: Intubated and sedated IVs and Medications Medications Reviewed: Medications were reviewed in detail Lab and Diagnostics Result Diagram: 02/28/17 0330 02/28/17 0330 X-Rays, CTs and MRIs . CT BRAIN WITHOUT CONTRAST IMPRESSION: No acute intracranial abnormalities. No significant discrepancy with the lead technical writer radiology preliminary report. Dictated by: Devin Gan M.D. on 02/28/2017 at 8:39 CT ANGIO CHEST PULMONARY EMBOLISM IMPRESSION: 1. No evidence for central pulmonary embolism. 2. There are several lung nodules bilaterally. Recommend CT followup. Please see recommendation. Dictated by: Devin Gan M.D. on 02/28/2017 at 8:41 X-RAY CHEST ONE VIEW, PORTABLE IMPRESSION: Acute disease is not seen in any portable chest. Dictated by: Dany Nunez M.D. on 02/27/2017 at 20:24 X-RAY CHEST ONE VIEW, PORTABLE IMPRESSION: Right subclavian central line is considered to be in good position allowing for rotation of the chest. No pneumothorax is seen. Dictated by: Dany Nunez M.D. on 02/27/2017 at 21:25 X-RAY CHEST ONE VIEW, PORTABLE IMPRESSION: Changed position of endotracheal tube now 2 and half centimeters above the karina. The NG tube could be advanced 10 cm so that the side hole is well within the stomach rather than at the GE junction. Right subclavian central line with the tip at the junction of superior vena cava and right atrium. Dictated by: Dany Nunez M.D. on 02/27/2017 at 21:57 12-lead ECG ECG Interpretation: no ischemia no dysrhythmia Time: 20:19 Interpreted by: ED physician Normal ECG Interpretation: Normal rate (93), Normal sinus rhythm Cardiac Echo Impressions . Echocardiogram Report Interpretation Summary: The left ventricle is normal in size, wall thickness, and systolic function without any focal wall motion abnormalities. The ejection fraction is estimated to be 60-65%. There is no significant valvular heart disease. Electronically signed by: Andrei Pitts on Assessment & Plan 46yoF with past medical history of anxiety, asthma wit past intubations 2/2 asthma at [facility] as per EMR admitted following a cardiorespiratory arrest in the field. Hospital Day 2. ventilator day 2. 1. Cardiopulmonary arrest. Acute. Present on admission - Pulmonology/intensive care team following, appreciate their guidance and recommendations - Unknown cause of arrest, possibly severe asthma exacerbation vs. cardiogenic shock secondary to cocaine ingestion - Reported 5 min of CPR in the field with return of spontaneous circulation - Cooling protocol initiated prior to admission - Urine positive for cocaine in the ED - Echocardiogram EF 60-65%, no wall motion abnormalities 2. Acute respiratory failure, present on admission. Ongoing - Secondary to #1 - Continue mechanical ventilation - Continue nebulizer treatment - Methylprednisone 60 mg IV every 6 3. Encephalopathy. Acute. Present admission. Ongoing - Most likely secondary to an anoxic brain injury as in #1 - To need to monitor 4. Drug abuse. Unknown chronicity. Present on admission - Urine tox positive for cocaine and marijuana 5. Concern for aspiration pneumonia - Antibiotics Zosyn - Appropriate cultures and serologies pending 6. Possible seizure. Acute. Present on admission. Ongoing - Report of witnessed seizure-like activity postcode - Received Keppra 2 g total 7. Trace hypokalemia. Acute. Not present on admission. Ongoing - Potassium magnesium replacement protocol 8. Elevated liver function tests. Acute. Present on admission. Ongoing - Most likely secondary to #1 - Trending down, continue to monitor - Hepatitis and HIV panel pending 9. Leukocytosis. Present on admission. Acute. Ongoing - Most likely secondary to stress response - Possibility of pneumonia as a #5 Disposition: Patient remains CCU status GI Prophylaxis: H2 julia VTE Prophylaxis: Sub-Q Heparin (Unfractionated) VTE Mechanical Devices: Intermittant Pneumatic CD Resuscitation Status: CPR: Attempt Resuscitation Attending Statement The patient was seen and examined together with House Staff/Resident on 02/28/17 and I agree with the history, exam and plan as outlined in the note above. MASON FELICIANO DO Feb 28, 2017 10:11 Cl Rivera Mar 04, 2017 19:26
[2017-02-28] MEDS ORDERED: Albuterol-Ipratropium 3 mL Inhalation Solution ONE (10:13)
[2017-02-28 10:37] LABS: TROPONIN T 0.01 ug/L (0.0-0.011)
[2017-02-28] MEDS: Piperacillin-Tazo 3.375 Gm Inj 3.375 GM in Dextrose 5% Minibag Plus 50 ML IV SCH ×2 (10:39→16:23)
[2017-02-28 10:49] LABS: Magnesium 2.3 mg/dL (1.6-2.6)
--- NOTE | 2017-02-28 11:11 | NUR ---
Sedation Train of 4 this morning 3-4out of 4- increased sedation propofol form 20 to 25 and 30min later to 30mcg/kg/min and increased nimbex from 0.5 to 0.7 and within 1h to 1.0mcg/kg/min- TO4 2-3 out of 4. Heart rate remained sinus bradycardia 45-60 beats per min with adequate BP. Patient did not require and vasoactive drips so far today- continue drip titration as needed, continue assessment.
[2017-02-28] MEDS ORDERED: Sodium Chloride LOK Flush 10 mL Syringe IVFLUSH PRN ×2 (11:15)
--- NOTE | 2017-02-28 11:19 | ABG ---
DateTimeAnalyzed 11:14:00 -_ pH ____7.316 - 7.350 7.450 pCO2 ___40.5__ -mmHg 35.0 45.0 pO2 108 -mmHg 69.0 116 HCO3- ___20.1__ -mmol/L 22.0 26.0 ABE ___-5.3__ -mmol/L -2.0 2.0 tHb ___12.8__ -g/dL O2Hb ___96.5__ -% COHb ____0.7__ -% MetHb ____0.9__ -% sO2 ___98.1__ -% FIO2 ___35.0__ -% PEEP ____5.0__ -cmH2O Vt __380.0__ -L Drawn By NB - Date/Time Notified____ 11:19:00 -_ Spontaneous_RR ___24.0__ -b/min Oxygen Device 1 VENTILATOR - Notified By NB - B 766 -mmHg tO2 ___17.5__ -Vol% Rancho test N/A -
--- NOTE | 2017-02-28 11:21 | CONS ---
[address] [address] CONSULTATION REPORT PATIENT: DL TOBIN : 09/08/1970 MR#: [id number] ADMIT: 02/27/2017 JOB ID: [id number] DATE OF SERVICE: 02/28/2017 REQUESTING PHYSICIAN: Risa Culver DO. REASON FOR CONSULTATION: Status post cardiorespiratory arrest, acute respiratory failure and vent management. HISTORY OF PRESENT ILLNESS: Dear Dr. Culver: Thank you for asking me to see the patient. The patient is a 46-year-old female who carries a known diagnosis of asthma, and she has prior intubation for her acute exacerbation of asthma in the past. She has recent hospitalization in [facility] and [facility] for her exacerbation of asthma in the past . This time, it appears that the patient was brought to the emergency department by EMS, who was called, as the patient was having symptoms of shortness of breath, and she did have witnessed cardiorespiratory arrest. Bystander CPR was done for about 5 minutes. When paramedics arrived the patient was still noted to be pulseless and apneic, and I am not sure whether the patient had asystole cardiac arrest or she had pulseless electrical activity arrest. No clear documentation is available for review. Regardless, after intubation and two rounds of epinephrine and ketamine, the patient was revived and rate, rhythm and blood pressure were restored, and the patient was transferred to the emergency department at the [facility]. From there on, the patient's initial arterial blood gas analysis had evidence of respiratory acidosis with pH of 7.0 and also evidence of metabolic acidosis/lactic acidosis. The patient was given IV fluids, and she was stabilized on the mechanical ventilatory support, and she did require some vasopressors for her hypotension and shock, and later on, she was transferred to the intensive care unit overnight. The patient's pH did improve and her followup blood gas revealed pH of 7.27, pCO2 of 43, pO2 of 154, bicarb of 19 and saturation 99% on 45% FiO2 and AC setting. It appears that the patient also carries a known concern of cocaine abuse, and this time her urine tox screen is again positive for cocaine, and the rest of the urine tox screen was negative. It does not appear, and no clear history is available whether the patient was having any concern of cough, fever, chills, chest pain, nausea, vomiting, diarrhea, or constipation or not. There is no family member available to provide that information. PAST MEDICAL HISTORY: Significant for asthma as mentioned above, and recent hospitalization in [facility] and [facility]. She also carries a known diagnosis of anxiety, hypertension. PAST SURGICAL HISTORY: Not available. ALLERGIES: 1. The patient has listed multiple allergies to medications including ERYTHROMYCIN, HYDROCODONE, PROMETHAZINE which led to CPR, although I am not sure about this information. 2. The patient has also allergy to PENICILLIN. CURRENT MEDICATIONS AT HOME: Include: 1. Prednisone 60 mg a day. 2. P.r.n. medications include: a. Albuterol HFA. b. Alprazolam 0.5 mg t.i.d. c. Oxycodone/acetaminophen that is Percocet 1 tablet q.4 h. SOCIAL HISTORY: Evident of substance abuse but it appears that the patient is a nonsmoker. She does not drink alcohol. I have no pertinent information about her social dynamics and work history. REVIEW OF SYSTEMS: Could not be obtained. PHYSICAL EXAMINATION: Today on her physical examination her blood pressure is 117/84, pulse is 53, pulse ox is 100%, respiratory rate is 24. Lungs are clear to auscultation. Cardiovascular exam: Rate and rhythm regular. Abdomen is soft. No hepatosplenomegaly. Bowel sounds positive. Extremities: Edema of feet negative. Neurologic exam: No focal deficits appreciated, although the patient at this time is sedated and paralyzed per hypothermia protocol. ANCILLARY DATA: Includes chest x-ray. ET tube is in place. The patient also has CT chest angiogram done which is negative for any evidence of pulmonary embolism, although the patient does have slight patchy opacity in the right upper lobe. Otherwise, the rest of the CT chest is unremarkable. The patient's white count is 14.2, hemoglobin 13.0, hematocrit is 41.3, platelets are 295. Urine tox screen is positive for cocaine and cannabinoids. Coagulation panel is PT is 10.2, INR 0.95. Sodium 143, potassium 4.0, chloride 106, bicarb 17, BUN 18, creatinine 1.19, glucose 155. Lactic acid was 6.2 at the time of admission. ASSESSMENT: 1. Status post cardiorespiratory arrest. Appears most likely the etiology is primarily respiratory in nature which may be secondary to use of cocaine versus asthma exacerbation, although the patient at this time does not have any evidence of ongoing wheezing or evidence of bronchospasm. 2. Acute respiratory failure secondary to status post cardiorespiratory arrest. 3. Encephalopathy. Likely anoxic. The patient is currently under hypothermia protocol and has reached her targeted temperature. 4. Cocaine abuse. 5. Hypotension. Appears to have resolved after intravenous fluid resuscitation and currently, the patient is off Levophed. 6. Other comorbidities including history of hypertension. PLAN: 1. At this time, will continue full mechanical ventilatory support. 2. Will continue empiric treatment with steroids for asthma. 3. Will continue bronchodilators. 4. Will give the patient empiric antibiotic including Zosyn. 5. Will obtain a followup chest x-ray. 6. Will send sputum culture if available. 7. Will continue targeted temperature therapy per protocol. 8. Will initiate DVT and GI prophylaxis. 9. Will continue otherwise supportive care. 10. Will follow along with you. Thanks for involving me in the care of the patient. TIME SPENT: 85 minutes of critical care time provided not including procedures.
--- NOTE | 2017-02-28 13:29 | DRSVH ---
[facility] [address] [place] [address] Echocardiogram Report Name: DL TOBIN Date: 02/28/2017 Height: 63 in Hospital Exam Location: [facility] Weight: 149 lb Gender: Female BSA: 1.7 m2 : 09/08/1970 Age: 46 yrs BP: 117/84 mmHg Reason For Study: ASSESS CARDIAC FUNCTION Ordering Physician: HOSPITALIST [facility] Performed By: Olvin Calderon Referring Physician: MASON FELICIANO Interpretation Summary The left ventricle is normal in size, wall thickness, and systolic function without any focal wall motion abnormalities. The ejection fraction is estimated to be 60-65%. There is no significant valvular heart disease. Procedure: A two-dimensional transthoracic echocardiogram with color flow and Doppler was performed. The study quality was technically adequate. There is no prior echocardiogram noted for this patient. The patient was in sinus bradycardia with heart rates between 45-53 bpm during the exam. Left Ventricle: The left ventricle is normal in size, wall thickness, and systolic function without any focal wall motion abnormalities. The ejection fraction is estimated to be 60-65%. Left ventricular wall motion is normal. Right Ventricle: The right ventricle is normal in size, thickness and function. Atria: The left atrial size is normal. Right atrial size is normal. The interatrial septum is intact with no evidence for an atrial septal defect. Mitral Valve: The mitral valve leaflets appear mildly thickened, but open well. There is trace mitral regurgitation. Aortic Valve: The aortic valve is normal in structure and function. No aortic regurgitation is present. Tricuspid Valve: The tricuspid valve is normal. There is a trace or physiologic amount of tricuspid regurgitation. Doppler findings do not suggest pulmonary hypertension. Pulmonic Valve: The pulmonic valve leaflets are thin and pliable; valve motion is normal. There is no pulmonic valvular regurgitation. Great Vessels: The aortic root is normal size. The ascending aorta could not be visualized. The pulmonary artery is normal size. Inspiratory collapse cannot be assessed because of mechanical ventilation, thus CVP cannot be estimated.. Pericardium/ Pleura There is no pericardial effusion. There is no pleural effusion. MMode/2D Measurements & Calculations LVIDd: 4.3 cm RA long axis LVOT diam LVIDs: 2.8 cm LA A2 area: 17.8 cm FS: 34.6 % LA A4 area: 11.5 cm RA area Ao root diam EPSS: 0.68 cm LA length (vol): 4.3 cm : 3.1 cm IVSd: 0.80 cm LA vol: 40.0 ml : 11.1 cm LVPWd: 0.91 cm LA vol index RA vol: 26.3 ml RA : 15.4 mm2 IVC diam: 1.7 cm LV lo. diameter/BSA LV sys. diameter/BSA RVD1 (basal) RVD2 (mid) (cm/m^2): 2.5 (cm/m^2): 1.6 : 2.3 cm TAPSE: 2.3 cm Doppler Measurements & Calculations Ao V2 max MV E max romel MV E/A: 0.82 MV dec time : 117.6 cm/sec : 83.8 cm/sec Med Peak E' Romel : 0.25 sec Ao max PG MV A max romel : 5.5 mmHg : 102.6 cm/sec E/E' med: 12.4 Ao mean PG Lat Peak E' Romel LVOT Max Romel E/E' lat: 11.1 : 90.0 cm/sec E/e' average: 11.8 MV A dur: 0.13 sec HELIO(I,D): 2.5 cm sev ratio Ao V2 mean LV V1 max PG HELIO indexed to BSA : 79.4 cm/sec (cm^2/m^2): 1.5 Ao V2 VTI: 28.6 cm LV V1 VTI: 22.3 cm HELIO(V,D): 2.4 cm2 Electronically signed by: Andrei Pitts on Reading Physician:02/28/2017 01:28 PM
[2017-02-28] MEDS: Norepineph 8,000 mCg/250 mL NS 8,000 MCG in IV Premix 1 EACH IV SCH (15:20)
[2017-02-28] MEDS: MethylprednisoLONE Sodium Succinate 40 mg/mL Inj IVPUSH SCH (15:20)
--- NOTE | 2017-02-28 15:22 | NUR ---
Wound Care Pressure ulcer protocol received patient a 46 yo female who was admitted to CCU after arresting in the community, currently on hypothermia protocol, will recheck on this patient on Friday.
--- NOTE | 2017-02-28 15:22 | NUR ---
Social Work: Screen D: Per EMR review, pt is a 46 year old female admitted for respiratory arrest, status asmaticus. Pt is [facility]. PCP is not listed. NOK is Luciano Pena, s/o. Advanced directives not on file. No readmit score entered at this time. Pt is currently vented and sedated in CCU. Pt's UDS was positive for cocaine. Pt is currently on a cooling protocol and not able to engage in assessment. A: Pt who is I at baseline. P: Evolving; [employer] to continue to follow and will follow up with CD resources and assessment when the pt is appropriate. TRAE Cochran
--- NOTE | 2017-02-28 15:44 | ABG ---
DateTimeAnalyzed 15:40:00 -_ pH ____7.347 - 7.350 7.450 pCO2 ___38.4__ -mmHg 35.0 45.0 pO2 ___84.8__ -mmHg 69.0 116 HCO3- ___20.5__ -mmol/L 22.0 26.0 ABE ___-4.2__ -mmol/L -2.0 2.0 tHb ___12.6__ -g/dL O2Hb ___95.2__ -% COHb ____0.8__ -% MetHb ____1.1__ -% sO2 ___97.0__ -% FIO2 ___35.0__ -% PEEP ____5.0__ -cmH2O Vt __380.0__ -L Drawn By NB - Spontaneous_RR ___24.0__ -b/min Oxygen Device 1 VENTILATOR - B 762 -mmHg tO2 ___16.9__ -Vol% Rancho test N/A -
[2017-02-28 15:47] LABS: Mean Corpuscular Hemoglobin 28.3 pg (27.0-35.0); Mean Corpuscular Volume 89.5 fL (81-100)
[2017-02-28] MEDS: Albuterol-Ipratropium 3 mL Inhalation Solution NEB SCH ×2 (15:57→20:30)
[2017-02-28 15:59] LABS: INR 0.95 ratio
[2017-02-28 16:11] LABS: Creatine Kinase 666 U/L (21-215); Magnesium 2.3 mg/dL (1.6-2.6)
--- NOTE | 2017-02-28 16:22 | PCM.CHPMED ---
Subjective Date of Service: Feb 28, 2017 Provider requesting consult: Cl Rivera Primary Physician: Admitting Physician: Risa Cluver DO Primary Care Physician: Justus Attending Physician: Risa Culver DO Chief Complaint: Chief Complaint: Pulmonary/Critical care consultation Vent management History of Present Illness: Patient is a 46YOF with MHx significant for asthma, anxiety, and hypertension presented to ED from the field intubated s/p PEA arrest. Per report, patient had a witness cardiac arrest, fell to the ground, bystander immediately started CPR. EMS activated and onsite ~5min and continue to code, received epinephrine and 2 rounds of and intubate patient for another 8-10min, before regaining spontaneous circulation. In the ED, she was quite bronchospastic, Peak pressure 30. Thus received duonebs, additional albuterol, steroids, and boluses fluids. She was admitted into the ICU on hypothermic protocol. Utox positive for cocaine and cannabinoids. Pulmonary Critical care consulted to assist in vent management. Patient history is limited. Per records she was recently admitted to [place] , initially evaluated by [facility] ED (02/17-02/18) for asthma exacerbation which resolved with nebs and steroids. She has a history of multiple Asthma exacerbation and one episode of PEA arrest, noncompliance, cocaine abuse, and psych history that includes histrionic behavior, anxiety, and PTSD. Review of Systems: unable to obtain due to patient intubated/sedated PMH Past Medical History Multiple hx Asthma exacerbation requiring hospitalization Cocaine abuse - crack cocaine PEA 09/2012 due to cocaine [place] Cancer? PTSD Anxiety Migraine Bedside Blood Glucose: 154 Surgical History Review of records from [place], [place] Hernia repair - mesh slin Cardiac stent placement Abdominal surgery? Home Medications Medication per report Accuneb 1.25mg Q4H Albuterol HFA Q4H PRN alprazolam 0.5mg TID as needed Percocet 5-325mg Q4H PRN Prednisone 60mg for 5days. start date unknown Allergies: Coded Allergies: erythromycin base (Verified Allergy, Unknown, 12/06/14) hydrocodone (Verified Allergy, Unknown, 12/06/14) promethazine (Verified Allergy, Unknown, 12/06/14) Haldol (Verified Allergy, 02/28/17) [place] dystonia Uncoded Allergies: Erythromycin (Allergy, Unknown, 07/18/04) Hydrocodone (Allergy, Unknown, 07/18/04) Penicillin (Allergy, Unknown, 07/18/04) Promethazine (Allergy, Unknown, 07/18/04) Family History Family History Review of records from [place], [place] Leukemia Mother Lymphoma Father Breast Cancer Sister Social History Hx Alcohol Use: NoHx Substance Use: Yes (Occasional Cocaine) Smoking Status: Never Smoker Exam Vital Signs Vital Sign - Last Date Time Temp Pulse Resp B/P Pulse Ox O2 Delivery O2 Flow Rate FiO2 02/28/17 14:03 53 110/78 100 35 02/28/17 11:32 Ventilator 02/28/17 11:32 32.9 24 Intake and Output 02/27/17 02/27/17 02/28/17 Cumulative From/Thru 15:00 23:00 07:00 02/27/17 20:08 - 02/28/17 05:53 Intake Total 5500 ml 1822 ml 7322 ml Output Total 50 ml 2000 ml 2050 ml Balance 5450 ml -178 ml 5272 ml Intake IV Total 5500 ml 1822 ml 7322 ml Output Urine Total 50 ml 2000 ml 2050 ml General: Other (obese, intubated) Head: Normal Eyes: Other (miosis, reactive ) Mouth: Lips, Mucous Membr Moist/[place] Neck: Supple Chest & Lungs: Clear to auscultation & percussion Cardiovascular: Regular Rate/Rhythm, No Murmurs/Rubs/Gallops, JV Pressure & Pulsation (no jvd) Abdomen: Non-distended, Normoactive bowel tones Extremities: No heel ulcers present Skin: Other (no rashes, wounds, or redness) Neurological: Other (sedated, paralyzed) Lab and Diagnostics Result Diagram: 02/28/1733 02/28/1733 Assessment & Plan Assessment Patient is a 46YOF with MHx significant for asthma, anxiety, and hypertension presented to ED from the field intubated s/p PEA arrest. Uncertain etiology, possible 2nd to asthma induced hypoxia or cocaine. Echocardiogram with normal EF 60-65% and no wall motion abnormalities or valvular defects, troponin x3 negative. CT-angio without evidence of PE and no intracranial pathologies seen on CT-brain. Questionable whether she has seizure. She remains compliance. Mild autopeep. Will continue vent support as she goes through hypothermic protocol. Problem list # S/p PEA arrest # Cardiogenic shock (resolved) # Transaminitis # Acute Hypoxic hypercapnic respiratory failure # Encephalopathy, anoxic # Leukocytosis # Asthma # Hypertension Respiratory - Vent support FIO2 35%, PEEP 5, RR 22, TV 380cc - DuoNeb, additional albuterol prn, and Solu-Medrol 60mg q6h - CRx and abg in the AM Infectious - Empiric Zosyn for aspiration pneumonia - Blood culture drawn after abx, cont to follow Leukocytosis - possible reactive, perhaps aspiration pneumonia Cardiovascular - Echocardiogram EF 60-65%, unremarkable - Maintain MAP>65, Levophed on standby - Cont hypothermic protocol Hematology DVT prophylaxis heparin subq Alimentary Transaminitis - Likely 2nd to shock - monitor, hepatitis and HIV ordered GI-prophylaxis Famotidine Neurologic Possible seizure - Prophylaxis with Keppra Total time spent 60min Problems: Pain Evaluation: Adequate Pain Control GI Prophylaxis: H2 julia VTE Prophylaxis: Sub-Q Heparin (Unfractionated) VTE Mechanical Devices: Intermittant Pneumatic CD Resuscitation Status: CPR: Attempt Resuscitation Javed Spivey DO Feb 28, 2017 14:17
[2017-02-28 16:32] LABS: TROPONIN T < 0.010 ug/L (0.0-0.011)
[2017-02-28] MEDS: 0.9% Sodium Chloride 1,000 ML IV SCH (17:11)
--- NOTE | 2017-02-28 18:44 | NUR ---
Note Consulted with MD regarding seizure medications Orlando elena discontinued after 2 doses.- no farther orders were received at this time. No seizure activity was noted during the shift. Bilateral pupils were equal about 1.5-2mm in diameter but very slow to react to light. MD discontinued Nimbex drip- drip gradually decreased to wean off- BIS 30-35 this evening with train of 4 at 2-4 out of 4 -patient remained restrained. MD declined CVP monitoring this morning. CVP was transduced this evening for urine output decreased from 50-100ml/h to 30-40 ml/h CVP was 9-10. BP remained stable without and vasoactive medications- see flow sheet. No maintenance/baseline IV fluids were ordered at the time except for sedition IV meds and NS x2 at TKO rate for IVPB were infusing at the time- MD was made aware- NS at 80 ml/h was started.
--- NOTE | 2017-02-28 20:22 | ABG ---
DateTimeAnalyzed 20:19:00 -_ pH ____7.177 - 7.350 7.450 pCO2 ___61.6__ -mmHg 35.0 45.0 pO2 ___47.3__ -mmHg 69.0 116 HCO3- ___21.9__ -mmol/L 22.0 26.0 ABE ___-7.0__ -mmol/L -2.0 2.0 tHb ___13.1__ -g/dL O2Hb ___72.8__ -% COHb ____0.4__ -% MetHb ____1.0__ -% sO2 ___73.8__ -% FIO2 ___35.0__ -% PEEP ____5.0__ -cmH2O Set_RR ___22.0__ -b/min Vt __380.0__ -L Drawn By MK - Date/Time Notified____ 20:22:00 -_ Oxygen Device 1 VENTILATOR - Notified By MK - Notified Whom jennifer leena - B 759 -mmHg tO2 ___13.4__ -Vol% [place]o test N/A -
[2017-02-28] MEDS ORDERED: levETIRAcetam Inj 1,000 MG in IV Premix 1 EACH IV ONE (20:25)
[2017-02-28] MEDS ORDERED: Cisatracurium Inj 200,000 MCG in 0.9% Sodium Chloride 100 ML, Pharmacy To Mix 1 EA IV ONE (20:25)
--- NOTE | 2017-02-28 21:08 | DRSVH ---
PROCEDURE: X-RAY CHEST ONE VIEW, PORTABLE ([id number]) INDICATIONS: INCREASE OXYGEN USE/SATS DROPPING TECHNIQUE: One view of the chest was acquired. COMPARISON: [facility], CR, XR CHEST 1VW (PORTABLE), 02/27/2017, 21:27. FINDINGS: Surgical changes and devices: ET tube projects approximately 5.5 cm superior to the karina. Central venous catheter projects to distal SVC via a right subclavian approach. NG tube crosses the GE junc tion. Lungs and pleura: No pleural effusions or pneumothorax. Patchy opacity noted in the mesial aspect of the left lung base. Mediastinum: Mediastinal contours appear normal. Heart size is normal. Bones and chest wall: No suspicious bony lesions. Overlying soft tissues appear unremarkable. IMPRESSION: Patchy opacities in the left lung base compatible atelectasis versus pneumonia. Dictated by: Jessy Jolley MD, PhD on 02/28/2017 at 21:05 Approved by: Jessy Jolley MD, PhD on 02/28/2017 at 21:06
[2017-02-28 22:30] LABS: Mean Corpuscular Hemoglobin 28.5 pg (27.0-35.0); Mean Corpuscular Volume 89.8 fL (81-100)
[2017-02-28 22:47] LABS: INR 0.94 ratio
[2017-02-28 23:18] LABS: Magnesium 2.2 mg/dL (1.6-2.6); TROPONIN T 0.01 ug/L (0.0-0.011)
[2017-03-01] VITALS (8 sets, daily range): BP systolic 72–98; BP diastolic 43–58; PULSE 61–87; RESP 26; O2SAT 99–100
[2017-03-01] MEDS: Chlorhexidine 0.12% 15 mL Oral Solution MT SCH ×5 (00:04→12:00)
[2017-03-01] MEDS: MethylprednisoLONE Sodium Succinate 40 mg/mL Inj IVPUSH SCH ×3 (00:04→09:25)
[2017-03-01] MEDS: Piperacillin-Tazo 3.375 Gm Inj 3.375 GM in Dextrose 5% Minibag Plus 50 ML IV SCH ×2 (00:04→07:32)
[2017-03-01] MEDS ORDERED: levETIRAcetam Inj 1,000 MG in IV Premix 1 EACH IV ONE (00:10)
[2017-03-01] MEDS: Heparin 5,000 Unit/mL Inj SUBQ SCH ×2 (01:33→07:34)
[2017-03-01] MEDS: Propofol Inj 1,000,000 MCG in IV Premix 1 EACH IV SCH (02:11)
[2017-03-01] MEDS: Albuterol-Ipratropium 3 mL Inhalation Solution NEB SCH ×2 (02:30→09:03)
[2017-03-01] MEDS ORDERED: 0.9% Sodium Chloride 1,000 ML IV ONE (02:45)
[2017-03-01] MEDS: 0.9% Sodium Chloride 1,000 ML IV SCH (02:50)
--- NOTE | 2017-03-01 05:09 | NUR ---
Seizure/resp/BP: Pt at started of shift had head popping and tongue thrusting activity. 30min later pt clonic tonic seizure activity to arms and legs. resident was paged and informed of seizure activity and desat. Rt into adjust vent to improve oxygenation ABGs were obtained and vent changes made. Pt then became very hypertensive resident paged again and stat CT of head was ordered. After returning to room pt then became hypotensive and was 2 liters of NS boluses with improvement in BP. Nimbex was restarted to control ventilations.
[2017-03-01 05:20] LABS: Mean Corpuscular Hemoglobin 28.9 pg (27.0-35.0); Mean Corpuscular Volume 90.4 fL (81-100); Platelet Count 287 bil/L (150-400)
[2017-03-01 05:41] LABS: BASOPHILS % (AUTO) 0 % (0-3); EOSINOPHILS % (AUTO) 0 % (0-5); MONOCYTES % (AUTO) 1 % (4-12); NEUTROPHILS % (AUTO) 82 % (40-74)
[2017-03-01] MEDS: fentaNYL 2,500 mCg/250 mL 2,500 MCG in IV Premix 1 EACH IV PRN (05:53)
[2017-03-01] MEDS: 0.9% Sodium Chloride 500 ML IV PRN ×3 (07:15→09:49)
[2017-03-01] MEDS ORDERED: Pantoprazole 4 mg/mL 10 mL Inj IVPUSH SCH (07:30)
--- NOTE | 2017-03-01 09:01 | DRSVH ---
PROCEDURE: X-RAY CHEST ONE VIEW, PORTABLE ([id number]) INDICATIONS: intubated. et tube positioning TECHNIQUE: One view of the chest was acquired. COMPARISON: [facility], CR, XR CHEST 1VW (PORTABLE), 02/28/2017, 20:47. [facility], CR, XR CHEST 1VW (PORTABLE), 02/27/2017, 21:27. FINDINGS: Surgical changes and devices: Endotracheal tube in normal position as is the nasogastric tube and a i ndwelling central venous catheter is noted to overlie the expected position of the distal SVC.. Lungs and pleura: No pleural effusions or pneumothorax. Lungs are abnormal, with no opacification o f the right lung base and relative volume loss on the right when compared to the prior study from one day ago.. Mediastinum: Mediastinal contours appear normal. Heart size is normal. Bones and chest wall: No suspicious bony lesions. Overlying soft tissues appear unremarkable. IMPRESSION: Significant short term interval change in appearance of the chest was but appears to be v olume loss on the right and right lower lobe partial opacification. The endotracheal and nasogastric tube are in normal position as is the central line. Mucous plugging would be suspected as cause of this significant interval reduction in the volume of the right hemithorax. Dictated by: Suhail Malagon M.D. on 03/01/2017 at 8:57 Approved by: Suhail Malagon M.D. on 03/01/2017 at 9:00
[2017-03-01] MEDS: Norepineph 8,000 mCg/250 mL NS 8,000 MCG in IV Premix 1 EACH IV SCH ×2 (09:15→14:33)
--- NOTE | 2017-03-01 09:23 | DRSVH ---
PROCEDURE: CT BRAIN WITHOUT CONTRAST ([id number]) INDICATIONS: dilated pupils TECHNIQUE: Noncontrast 4.5 mm thick angled axial sections acquired from the foramen magnum to the vertex, with c oronal reformats. COMPARISON: [facility], CT, CT BRAIN WO CON, 02/27/2017, 22:02. FINDINGS: Image quality: Excellent. CSF spaces: Basal cisterns are patent. No extra-axial fluid collections. Ventricles are normal in size and shape. Brain: No midline shift. No intracranial masses or hemorrhage. Miranda-white matter interface is norm al. Skull and face: Calvarium and visualized facial bones are intact, without suspicious lesions. Sinuses: Visualized sinuses and mastoids are clear. IMPRESSION: Normal for age. Dictated by: Suhail Malagon M.D. on 03/01/2017 at 9:21 Approved by: Suhail Malagon M.D. on 03/01/2017 at 9:22
[2017-03-01 10:11] LABS: Magnesium 1.9 mg/dL (1.6-2.6)
[2017-03-01] MEDS ORDERED: Lidocaine PF 2% 10 mL Inj ONE (10:56)
[2017-03-01] MEDS ORDERED: Lidocaine Topical 2% 30 mL Jelly ONE (10:56)
[2017-03-01] MEDS ORDERED: SODIUM CHLORIDE 0.9% IV SCH (11:25)
[2017-03-01] MEDS ORDERED: LACOSAMIDE IV SCH (11:25)
[2017-03-01] MEDS ORDERED: levETIRAcetam Inj 1,000 MG in IV Premix 1 EACH IV SCH (11:40)
--- NOTE | 2017-03-01 12:51 | PROG NOTE ---
[address] [address] PROGRESS NOTE PATIENT: DL TOBIN : 1965 MR#: [id number] ADMIT: 02/27/2017 JOB ID: [id number] DATE: 03/01/2017 FOLLOWUP PROGRESS NOTE IN HOSPITAL: SUBJECTIVE: The patient is currently on the vent, sedated with propofol and appeared to be stable. The patient does have some evidence of myoclonic twitching of her face and on the upper extremities on stimulation. It appears that the patient went off her paralytics at night and was noted to have significant evidence of de-posturing and myoclonus, and nocturnal physician gave her dose of Keppra and put her back on Nimbex. This morning Nimbex was requested to be turned off and on evaluation, the patient was noted to have recurrence of her myoclonic twitching of her facial muscles and upper extremities. Hemodynamically, she remains on the Levophed 0.05 mcg/kg/min, and she is currently requiring propofol for sedation, and was also given Ativan along with Keppra overnight. OBJECTIVE: VITAL SIGNS: Her current blood pressure is 133/71, pulse is 110, respiratory rate is 19, pulse ox is 95% on 60% FiO2. Lungs: Scattered rhonchi bilaterally. Cardiovascular exam: Rate and rhythm regular. Tachycardia positive. Abdomen is soft. No hepatosplenomegaly. Bowel sounds positive. Extremities: Edema of feet negative. Neurologic exam: The patient is sedated but pupils are about 2 mm. Unable to assess the reactivity, as pupils are somewhat small. May be diminished to light. Corneal reflexes are absent. The patient does not withdraw to pain. No focal deficit was appreciated. The patient has ongoing evidence of twitching of her facial and upper extremity muscles with jerking movements. HEENT exam: Head is normocephalic, atraumatic. Pupils are small and nonreactive. Neck is supple. No JVD appreciated. No thyromegaly. No cervical lymphadenopathy. Skin exam within normal limits. Lymphatic exam: No peripheral lymphadenopathy appreciated. LABORATORY DATA: This morning her arterial blood gas analysis showed pH of 7.17, pCO2 of 61, pO2 of 47, bicarb 21, saturation is 73% on 35% FiO2. Chest x-ray is evident of complete right lower lobe atelectasis. Appeared to be new when compared to previous x-ray done on February 28, 2017. The rest of the laboratory data includes white count of 45,000, hemoglobin 12.1, hematocrit 37.8, platelets are 278. Chemistry revealed sodium 143, potassium 4.3, chloride 112, bicarb 18, BUN 10, creatinine 0.49 and the glucose 112. Lactic acid 0.7. Calcium 7.6, phos is not available, magnesium 2.0. Total bili 0.4, AST 49, ALT 42, alkaline phosphatase 55, total protein 5.4, albumin is 2.3. Procalcitonin 0.28. CURRENT MEDICATIONS: Include: 1. Ondansetron. 2. Senna. 3. Maalox. 4. MiraLAX. 5. Propofol continuous drip. 6. Fentanyl continuous drip. 7. Acetaminophen p.r.n. 8. IV normal saline at 75 mL/h. 9. Nitroglycerin p.r.n. 10. Zosyn 3.375 mg q.8 h. 11. Heparin subcu prophylaxis. 12. Norepinephrine 0.05 mcg/kg/min. 13. Methylprednisolone 60 mg IV q.6 h. 14. Ativan on p.r.n. basis. 15. Keppra 1000 mg q.12 h. ASSESSMENT: 1. Status post cardiorespiratory arrest. Arrest appears to be respiratory in nature after probably cocaine abuse or exacerbation of asthma with total of about 13-14 minutes of cardiopulmonary resuscitation of which 15 minutes of cardiopulmonary resuscitation was done by a bystander. 2. Acute respiratory failure secondary to above. 3. Right lower lobe complete atelectasis most likely secondary to mucous plugging, status post therapeutic bronchoscopy. 4. Anoxic encephalopathy, status post hypothermia per protocol. The patient does have evidence of myoclonus, which appears to be a poor prognostic sign. The patient's followup CT head is without any evidence of cerebral edema or acute event. 5. Cocaine abuse. 6. Shock. The patient continues to require low-dose norepinephrine. 7. Other comorbidities including hypertension and underlying asthma. PLAN: 1. At this time, will continue full mechanical ventilatory support. Will increase FiO2 and respiratory rate as has already been done. 2. Will obtain a followup arterial blood gas analysis at this time. 3. Will give the patient IV fluids. 4. Will wean off Levophed as tolerated. 5. Will reload the patient with IV Keppra. 6. Will obtain Neurology consultation for further evaluation and need for EEG. 7. Will continue the patient on her antibiotics including Zosyn and vancomycin. 8. Will follow up on right lower lobe bronchial washing cultures. 9. Will also start the patient on Mucomyst nebulized form for better pulmonary hygiene and toilet. 10. Will continue steroids as initiated. 11. Will continue bronchodilators. 12. Will continue otherwise supportive care. 13. At this time, in face of significant concern of anoxic encephalopathy, prognosis appears to be poor, although the patient at this time needs further neurologic workup for a more definitive determination. TIME SPENT: Forty minutes of critical care time provided, not including procedures.
--- NOTE | 2017-03-01 13:01 | ABG ---
DateTimeAnalyzed 12:55:00 -_ pH ____7.322 - 7.350 7.450 pCO2 ___37.2__ -mmHg 35.0 45.0 pO2 ___87.0__ -mmHg 69.0 116 HCO3- ___18.7__ -mmol/L 22.0 26.0 ABE ___-6.3__ -mmol/L -2.0 2.0 tHb ___11.4__ -g/dL O2Hb ___95.0__ -% COHb ____0.8__ -% MetHb ____1.2__ -% sO2 ___96.9__ -% FIO2 ___60.0__ -% PRVC 380 - PEEP ____5.0__ -cmH2O Set_RR ___26.0__ -b/min Vt __380.0__ -L Drawn By NB - Date/Time Notified____ 13:00:00 -_ Oxygen Device 1 VENTILATOR - Notified By NB - Notified Whom ___DR. CALIN - B 754 -mmHg tO2 ___15.2__ -Vol% Rancho test N/A -
--- NOTE | 2017-03-01 13:44 | NUR ---
Social Work: Updating Note Data/Assessment: Pt remains in CCU and is having seizures. Pt is being transferred to [facility]. Plan: Xfer to [facility]; Case management will follow until pt is discharge. TRAE Cochran
--- NOTE | 2017-03-01 13:49 | CONS ---
[address] [address] CONSULTATION REPORT PATIENT: DL TOBIN : 1965 MR#: [id number] ADMIT: 02/27/2017 JOB ID: [id number] DATE OF SERVICE: 03/01/2017 NEUROLOGY CONSULTATION: REQUESTING PHYSICIAN: Dr. Rivera CHIEF COMPLAINT: Status epilepticus. HISTORY OF PRESENT ILLNESS: The patient is a 51-year-old female with history of asthma requiring intubation admitted following cardiopulmonary arrest in the field. She was in PEA when EMS arrived with patient unresponsive requiring a total of 13 minutes before circulation was restored. The event occurred at 1919 on February 27. According to the hospitalist notes, seizures were witnessed upon arrival however, emergency department notes do not support that. The patient received a total of 2 g of levetiracetam and seizure-like activity apparently resolved. She has remained intubated and on a respirator with no pupillary response or voluntary movement noted. No family members have been identified despite efforts to locate them. There is a significant other who has not been present at the bedside. At 5 a.m. today seizure-like activity with head "popping" and tongue thrusting noted by the nursing staff. Thirty minutes later generalized tonic-clonic activity was noted. Repeat head CT was requested at that time, which I have personally reviewed on the PAC system. No acute abnormalities were noted and this CT was unchanged from the previous CT of the head done at admission. Paralytics were restarted but no change in antiepileptic medication. The patient has continued to have myoclonic jerking in the upper extremities. Upon arrival this morning, Dr. Moody, the pulmonary software recruiter, noted the activity when paralytics were stopped upon hearing of the events. I was called by Dr. Rivera regarding recommendations. I recommended increasing propofol and contacting family members to consider transfer for management of status epilepticus versus if seizures could not be stopped. Upon arrival at the hospital, Dr. Moody is doing a bronchoscopy due to possible aspiration pneumonia. The patient continues to have myoclonus despite implementing these recommendations. I recommended increasing levetiracetam to 1000 mg bolus with 1000 b.i.d. and adding lacosamide 200 mg IV while continuing propofol at maximum tolerated dose. The increase in propofol does not appear to have manifested a difference in terms of myoclonic activity. I personally reviewed the head CT from February 28, 2017 at 21:57. There does appear to be effacement of the sulci which may indicate diffuse cerebral edema with change noted by my review from the study done on February 27, 2017 at 22:02. PAST MEDICAL HISTORY: This is reviewed from the chart with the patient unable to provide a history. 1. Asthma requiring intubation in the past. 2. Anxiety. 3. Hypertension. 4. Possible heart disease. 5. History of cardiac angioplasty with stent. 6. Questionable smoking history, never smoked. SOCIAL HISTORY: Cocaine. The patient apparently lives alone. There is mention of a significant other who is not present. FAMILY HISTORY: Unobtainable. REVIEW OF SYSTEMS: Unobtainable. DRUG ALLERGIES: Listed as ERYTHROMYCIN, HYDROCODONE, PENICILLIN, PROMETHAZINE, HALOPERIDOL. MEDICATIONS: Outpatient medications are unknown. Inpatient: 1. Levetiracetam 1000 mg b.i.d. 2. Lorazepam for seizure activity last given at 9:50. 3. Solu-Medrol 60 mg q.6 IV push. 4. Albuterol. 5. Heparin subcu. 6. Peridex. 7. Piperacillin. 8. Protonix. 9. Fentanyl. 10. IV fluids. 11. Propofol IV drip. 12. Others noted. PHYSICAL EXAMINATION: The patient is intubated and on a ventilator. Vital signs: Blood pressure 93/47 with a heart rate of 87, respiratory rate 26, temperature 35.3 (patient is on cooling protocol, now warming). Pulse oximetry 99% on mechanical ventilator. Head: Normocephalic, atraumatic. Neck: Rigid. No carotid bruits. Cardiac regular rate and rhythm. Lungs with rhonchi. No edema in the lower extremities. Limbs cool to the touch. NEUROLOGIC EXAMINATION: The patient is unresponsive to pain. No spontaneous eye movement is noted. Cranial nerves: Pupils are pinpoint, nonreactive. No doll eyes present. No gag present. Cranial nerves cannot be evaluated further due to patient's comatose state, intubation and ventilator. Motor strength: No spontaneous movement, no voluntary movement. Deep tendon reflexes absent with possible Babinski bilaterally. Tone: Neck is slightly rigid during myoclonic activity which is noted as generalized upper extremity twitching in a rhythmic pattern. Tone is otherwise intact throughout. Sensation: No activity with deep pain, sensation cannot be assessed. Coordination and gait cannot be assessed due to comatose state. IMAGING STUDIES: As above. LABORATORY STUDIES: White count 45. Toxicology positive for cocaine and cannabinoids. Normal coagulation profile. UA with large blood. Chemistry with chloride elevated at 112, creatinine 0.49, glucose 112, protein 5.4. Please see chart for detail. ASSESSMENT AND RECOMMENDATION: The patient is a 51-year-old female with [id number] cardiopulmonary arrest transported to [facility] on February 27, 2017 with reported CPR starting at 1920 requiring 5 minutes before circulation was returned. It is hypothesized that the patient was in PEA for 13 minutes minimally. The patient has failed to regain any spontaneous activity including pupillary response. Cocaine was noted at the time of admission. She was on cooling protocol with generalized tonic-clonic seizures noted soon after admission and continuing myoclonus after. The patient was loaded with levetiracetam and propofol has been adjusted to the maximum. I recommended adding lacosamide and keeping the levetiracetam at maximum dose 1000 mg q.8. It is likely the patient has sustained brain damage which is the reason for the myoclonus. She is likely in status epilepticus but there is no EEG or monitoring available over the weekend. There is no monitoring in our hospital for seizures I recommended transfer to an outside hospital with ability to monitor for status epilepticus for higher level of care. My recommendations were discussed with Dr. Moody and with Dr. Rivera who will arrange for the transfer. Family members were not available to discuss alternatives for care. Thank you for this consultation. Please call if needed. ROSS
--- NOTE | 2017-03-01 14:13 | OP ---
[address] [address] OPERATIVE REPORT PATIENT: DL TOBIN : 1965 MR#: [id number] ADMIT: 02/27/2017 JOB ID: [id number] DATE OF SURGERY: 03/01/2017 SURGEON: Cliff Moody M.D. PROCEDURE: Therapeutic bronchoscopy. PREOPERATIVE DIAGNOSIS(ES): POSTOPERATIVE DIAGNOSIS(ES): INDICATION: Right lower lobe atelectasis. SEDATION: The patient was already on mechanical ventilatory support via endotracheal intubation and was receiving propofol IV continuous drip. COMPLICATION NOTED: None. ESTIMATED BLOOD LOSS: None. PROCEDURE DETAIL: Bronchoscope introduced through the ET tube and karina was noted to be within normal limits. Bronchoscope introduced into the right tracheobronchial tree. Right upper lobe was evident of small purulent effusions which were suctioned out and no evidence of endobronchial lesion. Then, bronchoscope introduced into the right main stem bronchus and evidence of complete occlusion of the right lower lobe bronchus was noted with purulent thick secretors. At the time the trap was placed and the suction device and 10 mL of saline was given and all the purulent secretions were suctioned out. After suctioning out the secretions, the airway appeared to be open and without any evidence of endobronchial lesions and bronchoscope introduced into the right middle lobe and no evidence of endobronchial lesions and then surveillance bronchoscopy was done in the left tracheobronchial tree. Again some minimal purulent secretions were noted into the left lingula which were all suctioned out. There was no evidence of endobronchial lesion in the left lower lobe, left middle or left upper lobe. At that time, bronchoscope was withdrawn and the patient tolerated the procedure well. No acute complications. Note that a specimen was sent for appropriate stain.
[2017-03-01] MEDS ORDERED: Acetylcysteine 20% 200 mg/mL 4 mL Inhalation Solution PO SCH (14:30)
--- NOTE | 2017-03-01 15:02 | NUR ---
Remains unresponsive on vent support, warmed to 37.0 as of 1330 today. Continued seizure-like rhythmic head twitches observed, twitching felt in hands, feet. Neuro consulted, Proprofol to 40mcg, Ativan IVPs, additional dose Keppra, and Lacosamide started with no improvement. Pupils 2-3 mm/equal, unresponsive, no gag, no corneal reflexes. Scant ETT secretions. Bronchoscopy performed this morning at bedside, mucous plugging found; samples to lab for dx per endoscopy team. Pressors started this morning for progressing hypotension, currently at 0.3mcg/kg, maintain MAP >60-65, received several IVF bolus to maintain CVP 10-14 per hypothermia protocol. UOP minimal, 20-30ml/hr via villegas cath. Scant liquid green fluid via OGT. Significant other, Luciano, made aware of patient transport when he called back after leaving several messages; his questions indicated that he had little awareness of the magnitude of her critical state. Report to Srinivas RN, and to transport team. Transported with bag of belongings (shoes, sox, pj pants, silver-tone necklace w/ black stone pendent), IV medications (including Fentanyl gtt, propofol and levophed gtts, normal saline) via ALS at 1500. [facility] updated of transfer.
[2017-03-01] MEDS ORDERED: Acetylcysteine 10% 100 mg/mL 30 mL Inhalation Solution NEB SCH (16:30)
--- NOTE | 2017-03-01 18:32 | PCM.DC.MED ---
Discharge Summary Date of Service Mar 01, 2017 Dates of Hospitalization Date of Hospital Admission Feb 27, 2017 at 22:16 Date of Discharge: Mar 01, 2017 Providers: Admitting Physician: Risa Culver DO Primary Care Physician: Justus Attending Physician: Risa Culver DO Diagnosis at Time of Discharge Diagnosis at Time of Discharge 1. Status post cardiorespiratory arrest. - Arrest appears to be respiratory in nature after probably cocaine abuse or exacerbation of asthma with total of about 13-14 minutes of cardiopulmonary resuscitation of which 15 minutes of cardiopulmonary resuscitation was done by a bystander. 2. Acute respiratory failure secondary to above. 3. Right lower lobe complete atelectasis most likely secondary to mucous plugging, status post therapeutic bronchoscopy. 4. Anoxic encephalopathy, status post hypothermia per protocol. Evidence of myoclonus and status epilepticus 5. Cocaine abuse. 6. Shock. 7. Other comorbidities including hypertension and underlying asthma. Consultations 1. Pulmonology/Intensive Care 2. Neurology Procedures XRay, CTs & MRIs CT BRAIN WITHOUT CONTRAST IMPRESSION: No acute intracranial abnormalities. No significant discrepancy with the shift stacker radiology preliminary report. Dictated by: Devin Gan M.D. on 02/28/2017 at 8:39 CT ANGIO CHEST PULMONARY EMBOLISM IMPRESSION: 1. No evidence for central pulmonary embolism. 2. There are several lung nodules bilaterally. Recommend CT followup. Please see recommendation. Dictated by: Devin Gan M.D. on 02/28/2017 at 8:41 X-RAY CHEST ONE VIEW, PORTABLE IMPRESSION: Acute disease is not seen in any portable chest. Dictated by: Dany Nunez M.D. on 02/27/2017 at 20:24 X-RAY CHEST ONE VIEW, PORTABLE IMPRESSION: Right subclavian central line is considered to be in good position allowing for rotation of the chest. No pneumothorax is seen. Dictated by: Dany Nunez M.D. on 02/27/2017 at 21:25 X-RAY CHEST ONE VIEW, PORTABLE IMPRESSION: Changed position of endotracheal tube now 2 and half centimeters above the karina. The NG tube could be advanced 10 cm so that the side hole is well within the stomach rather than at the GE junction. Right subclavian central line with the tip at the junction of superior vena cava and right atrium. Dictated by: Dany Nunez M.D. on 02/27/2017 at 21:57 Cardiac Echo Impression Echocardiogram Report Interpretation Summary: The left ventricle is normal in size, wall thickness, and systolic function without any focal wall motion abnormalities. The ejection fraction is estimated to be 60-65%. There is no significant valvular heart disease. Electronically signed by: Andrei Pitts on Brief History As noted in H&P by Dr. Culver: 46yoF with past medical history of anxiety, asthma wit past intubations 2/2 asthma at [facility] as per EMR admitted following a cardiorespiratory arrest in the field. Per ED documentation: "Per EMS the patient had shortness of breath that progressively worsened, and a reporting person witnessed the patient go into cardiorespiratory arrest. The reporting person noted no pulses and started CPR which lasted 5 minutes at 1920. Upon arrival by EMS the patient was pulseless and apneic. Pt was intubated and given epinephrine and 2 rounds of ketamine. They performed 8 more minutes of CPR with return of circulation. En route the patient was hypotensive." Recent admission at [facility] and [facility]. Possible seizure activity following presentation. Utox in ED positive for cocaine. Initial vitals upon arrival T 36.9, 94, 23, 112/67 with BP decreasing 30 minutes following arrival (77/42). ABG following arrival pH 7.046/ pCO2 72/ pO2 308.0/ cHCO3- (P) 18.9 Patient was started on cooling protocol. Hospital Course 1. Cardiopulmonary arrest. Acute. Present on admission - Pulmonology/intensive care team following, appreciate their guidance and recommendations - Unknown cause of arrest, possibly severe asthma exacerbation vs. cardiogenic shock secondary to cocaine ingestion - Cooling protocol initiated prior to admission - Urine positive for cocaine in the ED - Echocardiogram EF 60-65%, no wall motion abnormalities - Patient started on warming protocol on night of 02/28/17 but was noted to have evidence of seizure activity - started on Keppra IV and Ativan prn - Neurology consulted on early intervention school psychologist of 03/01. Per Neurology recommendations: - loaded with levetiracetam and propofol has been adjusted to the maximum. - recommended adding Lacosamide and keeping the levetiracetam at maximum dose 1000 mg q.8. - [place] that likely the patient has sustained brain damage which is the reason for the myoclonus. - Also felt patient likely status epilepticus. - There is no monitoring in our hospital for seizures. - Therefore per recommendation by Dr. Barba patient is to transfer to [facility] with ability to monitor for status epilepticus in consideration of additional treatment and a higher level of care. # Acute respiratory failure, present on admission. Ongoing - Secondary to #1 - Continue mechanical ventilation # Encephalopathy. Acute. Present admission. Ongoing - Most likely secondary to an anoxic brain injury as in #1 # Drug abuse. Unknown chronicity. Present on admission - Urine tox positive for cocaine and marijuana # Concern for aspiration pneumonia - Antibiotics Zosyn - Appropriate cultures and serologies pending # Trace hypokalemia. Acute. Not present on admission. Ongoing - Potassium magnesium replacement protocol # Elevated liver function tests. Acute. Present on admission. Ongoing - Most likely secondary to above - Trending down, continue to monitor - Hepatitis and HIV panel pending By day of d/c CV: RRR. Exam Vital Signs (Last) Date Time Temp Pulse Resp B/P Pulse Ox O2 Delivery O2 Flow Rate FiO2 03/01/17 12:00 36.8 86 98/43 99 Mechanical Ventilator 03/01/17 11:20 60 03/01/17 07:23 26 Test 02/27/17 20:10 02/27/17 20:27 02/28/17 03:30 02/28/17 12:25 D-Dimer 4.29mg/L FEU (<0.50) Pro-B-Type Natriuretic Peptide 214.7pg/mL (0-249) HCG Beta Subunit 0.784mIU/mL Urine Color Yellow (YELLOW) Urine Appearance Hazy (CLEAR,HAZY) Urine pH 6.0 (5.0-8.0) Urine Specific [place]ather >1.030 (1.003-1.035) Urine Protein >300mg/dL (NEG,TRACE) Urine Glucose (UA) Negativemg/dL (NEGATIVE) Urine Ketones Negativemg/dL (NEGATIVE) Urine Occult Blood Large (NEGATIVE) Urine Nitrite Negative (NEGATIVE) Urine Bilirubin Negative (NEGATIVE) Urine Urobilinogen Normalmg/dL (NORMAL) Urine Leukocyte Esterase Negative (NEGATIVE) Urine RBC >50/hpf (0-2) Urine WBC 0-5/hpf (0-5) Urine Epithelial Cells Moderate/hpf (NONE-MOD) Urine Crystals None seen (NONE SEEN) Urine Bacteria Few/hpf (NONE-FEW) Urine Hyaline Casts None/lpf (NONE) Urine Granular Casts None seen (NONE SEEN) Urine Waxy Casts None seen (NONE SEEN) Urine Red Blood Cell Casts None seen (NONE SEEN) Urine White Blood Cell Casts None seen (NONE SEEN) Urine Mucus None seen (None Seen) Urine Trichomonas None seen (NONE SEEN) Urine Yeast None (NONE SEEN) Urinalysis Comment Amorphous sediment Urine Culture Reflexed Not indicated Urine Opiates Screen Negative Urine Methadone Screen Negative Urine Barbiturates Screen Negative Urine Amphetamines Screen Negative Urine Benzodiazepines Screen Negative Urine Cocaine Metabolite Screen Positive Urine Cannabinoids Screen Positive Phosphorus Level 3.3mg/dL (2.5-4.9) Prealbumin 19mg/dL (20-40) Thyroid Stimulating Hormone (TSH) 0.528uIU/mL (0.450-4.500) Hold Urine Received (Received) Test 02/28/17 15:30 02/28/17 16:45 02/28/17 22:21 03/01/17 05:00 Hold Purple Top Tube Received (Received) Hold Blue Top Tube Received (Received) Hold [place] Top Tube Received (Received) Hold [place]ims Top Tube Received (Received) Hepatitis B Surface Antigen Negative (Negative) Hepatitis B Surface Antibody Non reactive (.) Hepatitis C Antibody <0.1s/co ratio (0.0-0.9) HIV (1&2) Ag and Ab, 4th Generation Non reactive (Non Reactive) Prothrombin Time 10.0sec (8.1-12.5) Prothromb Time International Ratio 0.94ratio Total Creatine Kinase 656U/L (21-215) Creatine Kinase MB 27.2ng/mL (0.0-5.3) Creatine Kinase MB % 4.1% (0.0-5.0) Troponin T 0.010ug/L (0.0-0.011) Triglycerides Level 60mg/dL (0-149) White Blood Count 45.0th/mm3 (3.8-10.1) Red Blood Count 4.18mil/mm3 (3.90-5.20) Hemoglobin 12.1g/dL (12.0-15.6) Hematocrit 37.8% (35.0-46.0) Mean Corpuscular Volume 90.4fL (81-100) Mean Corpuscular Hemoglobin 28.9pg (27.0-35.0) Mean Corpuscular Hemoglobin Concent 32.0% (32.0-37.0) Red Cell Distribution Width 15.8% (12.3-15.4) Platelet Count 287bil/L (150-400) Neutrophils (%) (Auto) 82% (40-74) Lymphocytes (%) (Auto) 0% (14-46) Monocytes (%) (Auto) 1% (4-12) Eosinophils (%) (Auto) 0% (0-5) Basophils (%) (Auto) 0% (0-3) Band Neutrophils % 16% (1-5) Sodium Level 143mEq/L (134-144) Chloride Level 112mEq/L (97-108) Carbon Dioxide Level 18mmol/L (18-29) Blood Urea Nitrogen 10mg/dL (6-24) Creatinine 0.49mg/dL (0.57-1.00) Estimat Glomerular Filtration Rate 189mL/min (>59) Glucose Level 112mg/dL (60-99) Lactic Acid Level 0.7mmol/L (0.4-2.0) Calcium Level 7.6mg/dL (8.5-10.1) Total Bilirubin 0.4mg/dL (0.0-1.2) Aspartate Amino Transf (AST/SGOT) 49U/L (0-50) Alanine Aminotransferase (ALT/SGPT) 42U/L (0-32) Alkaline Phosphatase 55U/L (25-150) Total Protein 5.4g/dL (6.4-8.4) Albumin 3.3g/dL (3.4-5.0) Procalcitonin 0.28ng/mL (0.00-0.08) Test 03/01/17 09:25 Potassium Level 4.8mEq/L (3.5-5.2) Magnesium Level 1.9mg/dL (1.6-2.6) Discharge Medications Discharge Medications Prednisone (PredniSONE) 20 Mg Tablet 60 MG PO DAILY Prescribed by: MASON ROJAS MD As needed Albuterol (Accuneb) 1.25 Mg/3 Ml Nebu 1.25 MG NEB Q4H PRN PRN For Wheezing Prescribed by: MASON ROJAS MD Albuterol HFA (Albuterol HFA) 8.5 Gm Hfa.aer.ad 1 PUFF IH Q4 PRN PRN For Wheezing Prescribed by: MASON ROJAS MD Alprazolam (Xanax) 0.5 Mg Tablet 0.5 MG PO TID PRN PRN For Anxiety Prescribed by: MASON ROJAS MD Oxycodone HCl/Acetaminophen 5-325 (Percocet 5-325) 1 Each Tablet 1 EACH PO Q4 PRN PRN For Pain Prescribed by: MASON ROJAS MD Followup Plan Disposition: Transfer to [facility] Time spent 45 min Cl Rivera Mar 01, 2017 18:32 Cl Rivera Mar 01, 2017 18:32
== END 2017-03-01 15:00 | disposition short-term general hospital (02) | DRG 296 ==
LOC: SED 20:02 → CCU 22:16 → EDBD 22:16
PROVIDERS: ADMIT Internal Medicine; ATTEND Internal Medicine
PROC: 5A1945Z Respiratory Ventilation, 24-96 Consecutive Hours (ICD-10-PCS; principal; 2017-02-27)
PROC: 03HY32Z Insertion of Monitoring Device into Upper Artery, Percutaneous Approach (ICD-10-PCS; 2017-02-27)
PROC: 02HV33Z Insertion of Infusion Device into Superior Vena Cava, Percutaneous Approach (ICD-10-PCS; 2017-02-27)
PROC: 6A4Z0ZZ Hypothermia, Single (ICD-10-PCS; 2017-02-27)
PROC: 4A033R1 Measurement of Arterial Saturation, Peripheral, Percutaneous Approach (ICD-10-PCS; 2017-02-27)
PROC: 0BC98ZZ Extirpation of Matter from Lingula Bronchus, Via Natural or Artificial Opening Endoscopic (ICD-10-PCS; 2017-03-01)
PROC: 0BC38ZZ Extirpation of Matter from Right Main Bronchus, Via Natural or Artificial Opening Endoscopic (ICD-10-PCS; 2017-03-01)
DX: I46.9 Cardiac arrest, cause unspecified (principal); J96.01 Acute respiratory failure with hypoxia; R57.9 Shock, unspecified; G93.1 Anoxic brain damage, not elsewhere classified; R56.9 Unspecified convulsions; I95.9 Hypotension, unspecified; T17.590A Other foreign object in bronchus causing asphyxiation, initial encounter; J98.11 Atelectasis; F14.10 Cocaine abuse, uncomplicated; F41.9 Anxiety disorder, unspecified; E87.6 Hypokalemia; R94.5 Abnormal results of liver function studies; I10 Essential (primary) hypertension; J45.909 Unspecified asthma, uncomplicated